=== PATIENT | female | born 1960 | race Caucasian/White ===

== ENCOUNTER → 2017-12-01 06:53 | Outpatient (CLI) | payer BC, SELFPAY ==
--- NOTE | 2017-12-01 06:58 | NM_ITS ---
SPECT MYOCARDIAL PERFUSION SCAN, REST AND STRESS: EXERCISE STRESS: [facility] REVIEW QGS EF AND WALL MOTION EVALUATION: QPS - PERFUSION EVALUATION: HISTORY: Chest pain, PALPITATIONS PROCEDURE: Rest imaging performed after administration of10.48 millicuries Tc MIBI. Dose administered at7:05 a.m., with imaging thereafter. Stress imaging was then performed following8 minutes 20 seconds of exercise stress. The patient achieved a heart [id number] with projected heart rate of140 . Resting BP149/82 with stress 154/74. At maximum exercise stress,32.6 millicuries Tc MIBI administered at8:45 a.m. with [id number] minutes thereafter. FINDINGS: Perfusion Evaluation: The single slice spect images as well as the [facility] bull's-eye data summary were reviewed. Wall Motion and Ejection Fraction Evaluation: Gated SPECT review and analysis used to evaluate these features. There is a 64 % left ventricular ejection fraction. There seems to be good wall motion Patient exercised 8 minutes 20 seconds on standard Olivier protocol with normal EKG response Stress images reveal mildly decreased activity in the anterior wall with rest images revealing moderately decreased activity in the anterior wall. Gated images calculated ejection fraction is 64% with normal wall motion. Correlation is advised. It is possible this represents breast attenuation however the possibility of anterior ischemia with a small degree of reverse redistribution does exist. IMPRESSION:
--- NOTE | 2017-12-01 07:43 | HMH.ITSHM ---
MULTIVITAMIN B12 CALCIUM ALLERGY MED NASONEX
== END ==
PROVIDERS: PCP Internal Medicine Adolescent Medicine; Visit Provider Internal Medicine Adolescent Medicine
DX: R00.2 Palpitations (principal); R07.9 Chest pain, unspecified
CPT/HCPCS: 78452; 93017; A9502

== ENCOUNTER → 2017-12-23 09:13 | Outpatient (CLI) | payer BC, SELFPAY ==
--- NOTE | 2017-12-23 09:15 | CA_ITS ---
PROCEDURE: 2-D M-mode and color Doppler study INDICATIONS FOR THE TEST: Chest pain COPD Heart Murmur Tobacco Smoking Palpitations+ Fatigue+ Syncope Edema Hypertension Diabetes Mellitus Rheumatic Fever SOB+KRUEGER Obesity Hyperlipidemia Family History HD Additional History NL CATH 2 WKS AGO PATIENT INFORMATION HEIGHT: 68 WEIGHT:195 GENDER: Female B/P:130/63 2-D/M-MODE INTERPRETATION: 2-D MEASUREMENTS OBSERVED VALUES IN CMS Right Ventricular Dimension (RVDd) 2.2 Interventricular Septum (Thickness)(IVsd) 1.1 Left Ventricular Internal Dimensions(LVIDd) 4.8 Left Ventricular Posterior Wall (Thickness)(LVPWd) 0.6 Aortic Root 3.5 Aortic Cusp Separation 2.2 Left Atrial Dimensions (LAD) 2.8 2D 1. Left atrium is normal size, left ventricle is normal size, there is no concentric left ventricular hypertrophy, visually estimated ejection fraction approximately 50% with no obvious regional wall motion abnormality. 2. The right atrium and right ventricle are normal size and contractility. 3. The aortic valve is minimally thickened and fibrosed. 4. The mitral and tricuspid valve are grossly normal. 5. The pulmonic valve is poorly visualized. 6. There is trivial pericardial effusion noted. DOPPLER INTERROGATION: Doppler interrogation of the aortic, mitral and tricuspid valvular presence of mild mitral and tricuspid regurgitation, tricuspid and jet velocity is insufficient for calculation of the right ventricular systolic pressure, diastolic parameters are inconclusive. CONCLUSION: 1. Normal left ventricular size, preserved left ventricular systolic function, visually estimated ejection fraction 50% with no obvious regional wall motion abnormality, diastolic parameters are inconclusive. 2. Mild mitral and tricuspid regurgitation 3. Trivial pericardial effusion noted.
== END ==
PROVIDERS: PCP Internal Medicine Adolescent Medicine; Visit Provider Internal Medicine
DX: R00.2 Palpitations (principal); E53.8 Deficiency of other specified B group vitamins; R06.09 Other forms of dyspnea; R53.83 Other fatigue
CPT/HCPCS: 93306

== ENCOUNTER → 2019-02-08 17:17 | Outpatient (CLI) | payer BC, SELFPAY ==
[2019-02-08 18:36] LABS: Basophils % 0.9 % (0.1-2.0); Eosinophils # 0.1 K/mm3 (0.0-0.4); Eosinophils % 1.2 % (0.1-12.0); Hematocrit 36.3 % (37.0-47.0); Hemoglobin 12.3 g/dL (12.2-16.2); Lymphocytes # 1.6 K/mm3 (0.7-4.5); Lymphocytes % 33.9 % (10-50); Mean Corpuscular Hemoglobin 29.2 pg (27.0-31.2); Mean Corpuscular Volume 85.9 fl (81-99); Mean Platelet Volume 6.7 fl (7.4-10.4); Monocytes # 0.2 K/mm3 (0.1-1.0); Monocytes % 4.2 % (1.7-9.3); Neutrophils # 2.8 K/mm3 (1.8-7.8); Neutrophils % 59.8 % (37.0-80.0); Platelet Count 251 K/mm3 (142-424); Red Blood Count 4.23 M/mm3 (4.20-5.40); Red Cell Distribution Width 12.4 % (11.5-17.5); White Blood Count 4.7 K/mm3 (4.8-10.8)
[2019-02-08 19:35] LABS: Anion Gap 15.2 mEq/L (5-15); Blood Urea Nitrogen 20 mg/dL (7-18); Carbon Dioxide 27 mmol/L (21.0-32.0); Chloride 104 mmol/L (98-107); Potassium 4.2 mmoL/L (3.5-5.1); Sodium 142 mmol/L (136-145)
[2019-02-08 19:36] LABS: Alanine Aminotransferase 23 U/L (12-78); Albumin/Globulin Ratio 1.1 (1.1-1.8); Alkaline Phosphatase 78 U/L (46-116); Aspartate Amino Transferase 9 U/L (15-37); Bilirubin,Total 0.6 mg/dL (0.2-1.0); Calcium 9.4 mg/dL (8.5-10.1); Estimated Glomerular Filt Rate 74 ml/min (>60); GFR (African American) 89 ML/MIN (>60); Globulin 3.7 gm/dl (1.3-3.2); Glucose 91 mg/dL (74-106); Total Protein,Serum 7.7 gm/dL (6.4-8.2)
[2019-02-12 06:23] LABS: Vitamin B12 791 pg/mL (232-1245)
== END ==
PROVIDERS: Visit Provider Internal Medicine Adolescent Medicine
DX: G57.92 Unspecified mononeuropathy of left lower limb (principal); E53.8 Deficiency of other specified B group vitamins
CPT/HCPCS: 36415; 80053; 82607; 85025

== ENCOUNTER → 2019-07-26 08:42 | Outpatient (CLI) | payer BC, SELFPAY ==
[2019-07-26 14:07] LABS: Basophils # 0.1 K/mm3 (0-0.2); Basophils % 1.2 % (0.1-2.0); Eosinophils # 0.1 K/mm3 (0.0-0.4); Eosinophils % 2.5 % (0.1-12.0); Hematocrit 37.1 % (37.0-47.0); Hemoglobin 12.2 g/dL (12.2-16.2); Lymphocytes # 1.2 K/mm3 (0.7-4.5); Lymphocytes % 27.7 % (10-50); Mean Corpuscular HGB Conc 32.9 g/dL (31.8-35.4); Mean Corpuscular Hemoglobin 29.9 pg (27.0-31.2); Mean Corpuscular Volume 90.9 fl (81-99); Mean Platelet Volume 8.4 fl (7.4-10.4); Monocytes # 0.2 K/mm3 (0.1-1.0); Neutrophils # 2.9 K/mm3 (1.8-7.8); Neutrophils % 63.7 % (37.0-80.0); Platelet Count 297 K/mm3 (142-424); Red Blood Count 4.09 M/mm3 (4.20-5.40); Red Cell Distribution Width 13.2 % (11.5-17.5); White Blood Count 4.5 K/mm3 (4.8-10.8)
[2019-07-26 16:33] LABS: Alanine Aminotransferase 17 U/L (12-78); Albumin Level 3.7 gm/dL (3.4-5.0); Albumin/Globulin Ratio 1.1 (1.1-1.8); Alkaline Phosphatase 69 U/L (46-116); Anion Gap 17.1 mEq/L (5-15); Aspartate Amino Transferase 14 U/L (15-37); Bilirubin,Total 0.8 mg/dL (0.2-1.0); Blood Urea Nitrogen 17 mg/dL (7-18); Calcium 8.5 mg/dL (8.5-10.1); Carbon Dioxide 22 mmol/L (21.0-32.0); Chloride 105 mmol/L (98-107); Chol/HDL Ratio 2.5 (1-3.5); Cholesterol 185 mg/dL (140-200); Creatinine,Serum 0.79 mg/dL (0.55-1.02); Estimated Glomerular Filt Rate 75 ml/min (>60); GFR (African American) 91 ML/MIN (>60); Globulin 3.3 gm/dl (1.3-3.2); Glucose 91 mg/dL (74-106); HDL Cholesterol 75 mg/dL (29-89); LDL Cholesterol 94 mg/dL (0-130); Potassium 4.1 mmoL/L (3.5-5.1); Sodium 140 mmol/L (136-145); Thyroid Stimulating Hormone 3.99 uIU/ml (0.358-3.740); Triglycerides 82 mg/dL (30-200); VLDL Cholesterol 16 mg/dL (0-40)
[2019-07-27 15:01] LABS: Vitamin B12 >2000 pg/mL (232-1245)
== END ==
PROVIDERS: PCP Internal Medicine Adolescent Medicine; Visit Provider Internal Medicine Adolescent Medicine
DX: G57.92 Unspecified mononeuropathy of left lower limb (principal); E53.8 Deficiency of other specified B group vitamins
CPT/HCPCS: 36415; 80053; 80061; 82607; 84443; 85025

== ENCOUNTER → 2020-05-17 16:22 | Outpatient (CLI) | payer BC, SELFPAY ==
[2020-05-19 13:34] LABS: Covid-19 Nasal PCR Sendout Lex Not Detected
== END ==
PROVIDERS: PCP Internal Medicine Adolescent Medicine; Visit Provider Internal Medicine Adolescent Medicine
DX: Z03.818 Encounter for observation for suspected exposure to other biological agents ruled out (principal)
CPT/HCPCS: U0004

== ENCOUNTER 2021-09-08 10:34 | Emergency (ER) | payer BC, SELFPAY ==
--- NOTE | 2021-09-08 11:28 | HMH.EDUTC ---
[facility] Disposition Clinical Impression: Sinusitis Qualifiers: Sinusitis location: unspecified location Chronicity: acute Recurrence: non-recurrent Qualified Code(s): J01.90 - Acute sinusitis, unspecified Disposition: Home, Self-Care Condition on Discharge: Good Instructions: DI for Sinusitis, Sinusitis, Preventing the Spread of Coronavirus Discharge Instructions Additional Instructions: Drink plenty of fluids. Take tylenol or ibuprofen for pain or fever. Take the medications as directed. Follow up with your regular doctor. GO TO THE ER FOR ANY WORSENING SYMPTOMS Quarantine until you know the results of your covid-19 test. If it is positive, the health department should call you and give you further instructions about your length of Quarantine and other things. Notify your school or workplace of your results and follow their instructions regarding return to work/school. Prescriptions: Benzonatate [Benzonatate 100mg cap] 100 mg PO TIDP PRN #30 cap PRN Reason: Cough Transmission Status: Pending to [facility] 493 methylPREDNISolone [Medrol] 4 mg PO DIRECTED 6 Days #21 packet Transmission Status: Pending to [facility] 493 guaiFENesin [Mucinex 600mg tablet] 1 - 2 tab PO BIDP PRN #30 tab PRN Reason: Congestion Transmission Status: Pending to [facility] 493 Azithromycin [Z-Ramez 250mg Tab*] 250 mg PO UD DOSE PK #6 tab Transmission Status: Pending to [facility] Referrals: Aureliano Johnson MD [Primary Care Provider] - Time of Disposition: 12:15 Medical Decision Making - Medical Records Medical records reviewed: No: I reviewed the patient's medical records. - Rajendra Inquiry Pt receiving controlled substance: No Vital Signs: 09/08/21 11:32 Temperature 98.7 F Temperature Source Oral Pulse Rate [Left] 85 Respiratory Rate 16 Blood Pressure [Right Arm] 166/95 H Blood Pressure Mean [Right Arm] 118 02 Sat by Pulse Oximetry 98 - Lab Data Lab results reviewed: Yes: I reviewed the patient's lab results. [facility] HPI - General Stated complaint: sore throat,cough,headache Time Seen by Provider: 09/08/21 11:28 - History of Present Illness Provider Complaint: She states that she has been having sinus congestion for the past 2 weeks. She seemed like she was getting better, but over the past 2 days she has got worse. She denies any fever or chills. She has been vaccinated against covid-19. She has not had a flu shot. - Related Data Home Medications Medication Instructions Recorded Confirmed ascorbate calcium (vitamin C) 500 500 mg PO DAILY tab 12/08/17 mg tablet loratadine 10 mg tablet 10 mg PO DAILY tab 12/08/17 mometasone 50 mcg/actuation nasal 2 spray INTRANASAL DAILY g 12/08/17 spray multivitamin 1 tab PO QAM 12/08/17 vitamin B complex 1 tab PO DAILY tab 12/08/17 vitamin U12-deecbkq B1 1,000 ml IM .twice a week 12/08/17 mcg-100 mg/mL injection solution Previous Rx's Medication Instructions Recorded Azithromycin [Z-Ramez 250mg Tab*] 250 mg PO UD DOSE PK #6 tab 09/08/21 Benzonatate [Benzonatate 100mg 100 mg PO TIDP PRN #30 cap 09/08/21 cap] guaiFENesin [Mucinex 600mg tablet] 1 - 2 tab PO BIDP PRN #30 tab 09/08/21 methylPREDNISolone [Medrol] 4 mg PO DIRECTED 6 Days #21 09/08/21 packet Allergies Allergy/AdvReac Type Severity Reaction Status Date / Time Penicillins [PENICILLINS] Allergy Unknown Unverified 08/26/17 14:02 [facility] History - Hepatitis A Screen Attestation statement:: This patient has been screened for Hepatitis A risk factors. I have reviewed the patient's past medical history: Yes Medical History: Reports:: Palpitations Other Surgeries: Yes: Colonoscopy, Diagnostic Lap, Other Amputation: No Fractures: No - Social History Smoking Status: Never smoker Alcohol Intake: never Alcohol Intake Frequency:: holidays/special occasions only Substance Use Type: denies use Occupational Status: employed
[2021-09-08 11:32] VITALS: BP 166/95; PULSE 85; RESP 16; TEMP 37.1; O2SAT 98; BMI 29.5
[2021-09-08 12:29] VITALS: BP 166/95; PULSE 85; RESP 16; TEMP 37.1
--- NOTE | 2021-09-09 11:32 | PC.NURSE ---
informed patient that she is positive
== END 2021-09-08 12:29 | disposition home or self-care (01) ==
PROVIDERS: Emergency Provider Nurse Practitioner Family; PCP Internal Medicine Adolescent Medicine
DX: U07.1 COVID-19 (principal); J01.90 Acute sinusitis, unspecified
CPT/HCPCS: 99202; C9803; G0463; U0003; U0005

== ENCOUNTER 2023-03-27 08:53 | Day surgery (SDC) | payer BC, SELFPAY ==
[2023-03-21 09:03] VITALS: BMI 29.5
[2023-03-27 09:32] VITALS: BP 155/89; PULSE 84; RESP 16; TEMP 36.7; O2SAT 98
--- NOTE | 2023-03-27 09:59 | P.PNANES_ITS ---
[facility] Disclaimer: The information contained in this section may have been updated after the patient was seen, as this information can be updated by other users. 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 caffeine: Yes special nancie needs: No do you feel safe at home: Yes victim of physical abuse: No victim of emotional abuse: No victim of sexual abuse: No would you like helpful sources: No [facility] Anesthesia Checklist Patient Identification Patient Identification: Arm Band and Verbal (Name & ) Structural Data Admitted From: Home Planned Operative Procedure/s: Colonoscopy Consent for Planned Operative Procedure(s) Verified: Yes NPO Status Verified Time NPO: 00:00 Airway Assessment C-Spine Mobility Assessed: Yes TMJ Mobility Assessed: Yes Dentition: Good Dentition Neurological Assessment Level of Consciousness: Awake Hx Seizures: No Numbness or tingling in extremities: No Anesthesia Plan Anesthesia Risk discussed: Yes Anesthesia Plan: Verified ASA Class: II Anesthesia Type: MAC
[2023-03-27 10:06] VITALS: O2SAT 100
--- NOTE | 2023-03-27 10:21 | HMH.SCOPE ---
Procedure: Date: 03/27/23 Patient Date of :: 1960 Procedure Performed:: Screening colonoscopy Indications:: Screening for colorectal cancer Performing Provider:: Franco Neal MD Referring Provider:: Aureliano Johsnon MD Sedation:: Propofol Procedure:: After placing the patient in the left lateral decubitus position, the colonoscopy was gently inserted into the rectum and under direct visualization advanced to the cecum which was identified by transillumination in the right lower quadrant, identification of the ileocecal valve, appendiceal orifice, and cecal strap. Color, texture, mucosa, and anatomy of the colon were carefully examined with the scope. Findings:: Anal canal: normal Rectum: normal Sigmoid colon: normal without polyps or inflammatory changes Descending colon: normal without polyps or inflammatory changes Splenic flexure: normal Transverse colon: normal without polyps or inflammatory changes Hepatic flexure: normal Ascending colon: normal without polyps or inflammatory changes Cecum: normal Terminal ileum: not visualized Impression: Normal colonoscopy Recommendations:: Follow up examination in about TEN years or so, sooner if clinically indicated. Complications:: None Estimated blood obtained (mL): 0 Colonoscopy Component Colonoscopy Component Was a colonoscopy performed during today's procedure?: Yes Recommended follow up colonoscopy of at least 10 years?: Yes
[2023-03-27 10:25] VITALS: BP 92/59; PULSE 66; RESP 16; TEMP 36.1; O2SAT 96
[2023-03-27 10:35] VITALS: BP 96/56; PULSE 75; RESP 16; TEMP 36.1; O2SAT 97
[2023-03-27 10:45] VITALS: BP 109/67; PULSE 66; RESP 18; TEMP 36.1; O2SAT 97
[2023-03-27 10:55] VITALS: BP 112/72; PULSE 64; RESP 18; TEMP 36.1; O2SAT 98
== END 2023-03-27 10:55 | disposition home or self-care (01) ==
PROVIDERS: PCP Internal Medicine Adolescent Medicine; Visit Provider Internal Medicine Gastroenterology
PROC: 0DJD8ZZ Inspection of Lower Intestinal Tract, Via Natural or Artificial Opening Endoscopic (ICD-10-PCS; CPT 45378; principal; 2023-03-27 10:00)
DX: Z12.11 Encounter for screening for malignant neoplasm of colon (principal)
CPT/HCPCS: 45378

== ENCOUNTER 2023-05-26 13:48 | Emergency (ER) | payer BC, SELFPAY ==
--- NOTE | 2023-05-26 13:51 | XR_ITS ---
FINAL REPORT CLINICAL HISTORY: fall, RT HAND PAIN FINDINGS: RIGHT HAND Three views demonstrate no acute fracture or dislocation. The visualized joint spaces are normally aligned. There is mild soft tissue swelling involving the dorsum of the hand. IMPRESSION: No acute bony abnormality. Reviewed, Interpreted and Dictated by Familia Madden MD Transcribed by Susana Sanchez Authenticated and [facility]
--- NOTE | 2023-05-26 13:51 | XR_ITS ---
FINAL REPORT CLINICAL HISTORY: fall, RT WRIST PAIN COMPARISON: None FINDINGS: RIGHT WRIST Three views demonstrate no acute fracture or dislocation. The visualized joint spaces are normally aligned. The soft tissues are unremarkable. IMPRESSION: No acute bony abnormality. Reviewed, Interpreted and Dictated by Familia Madden MD Transcribed by Susana Sanchez Authenticated and [facility]
[2023-05-26 14:00] VITALS: BP 129/78; PULSE 85; RESP 18; TEMP 36.8; O2SAT 96; BMI 29.5
--- NOTE | 2023-05-26 14:03 | EXP.UTC ---
Discharge Plan Disposition Patient Disposition: Home, Self-Care Condition: Good Prescriptions Prescriptions: New ibuprofen [ibuprofen] 600 mg tablet 600 mg PO Q6HP PRN (Reason: Mild Pain) Qty: 30 0RF No Action multivitamin tablet 1 tab PO QAM ascorbate calcium (vitamin C) 500 mg tablet 500 mg PO DAILY loratadine [Claritin] 10 mg tablet 10 mg PO DAILY vitamin X51-uxsocaw B1 1,000-100 mg/mL solution 1,000 ml IM .twice a week vitamin B complex [B Complex-Vitamin B12] tablet 1 tab PO DAILY medroxyprogesterone [Provera] 5 mg Tablet See Rx Instructions .ROUTE .COMPLEX Rx Instructions: take 5 days a week levothyroxine 25 mcg tablet 25 mcg PO DAILY estradiol 0.5 mg tablet 0.5 mg PO DAILY Patient Comments: TAKE 1 TABLET BY MOUTH ONCE DAILY Rx Instructions: 5 days a week bupropion HCl 150 mg tablet extended release 24 hr 150 mg PO DAILY Referrals Follow up/Referrals: Dejon Marie DO [Staff Physician] - See instructions Aureliano Johnson MD [Primary Care Provider] - See instructions Activity Restrictions/Add. Instructions Additional Instructions/Restrictions: Rest the extremity, Wear the danay wrap for compression, Elevate the extremity as tolerated while you are resting. Take ibuprofen for pain. I sent in a prescription to your pharmacy. Follow up with Dr. Marie (orthopedics) if you continue to have symptoms. I put in a referral but you need to call his office and schedule an appointment. Follow up with your regular doctor. GO TO THE ER FOR ANY WORSENING SYMPTOMS Clinical Impressions Clinical Impression: Sprain of hand, right Instructions Patient Instructions: DI for Hand Injury Discharge ED Provider: Kevin Candelario [facility] General Stated complaint: AO9/15@home, pain in Rt hand Time Seen by Provider: 05/26/23 14:03 History of Present Illness Provider Complaint: She states that she fell 3 days ago and came down on her right hand. Since then she has had pain and soreness of the area around the base of her middle and ring finger. She denies any other injury. She thought her hand was getting better but when she went back to work and started typing today it started hurting her worse, so she came in to get it checked. Related Data Home Medications Medication Instructions Recorded Confirmed ascorbate calcium (vitamin C) 500 500 mg PO DAILY Supplement 12/08/17 03/12/23 mg tablet loratadine 10 mg tablet (Claritin) 10 mg PO DAILY allergies 12/08/17 05/26/23 multivitamin 1 tab PO QAM Supplement 12/08/17 05/26/23 vitamin B complex (B 1 tab PO DAILY Supplement 12/08/17 03/12/23 Complex-Vitamin B12 tablet) vitamin K30-kjxviak B1 1,000 1,000 ml IM .twice a week 12/08/17 03/12/23 mcg-100 mg/mL injection solution Supplement bupropion HCl 150 mg 24 hr tablet, 150 mg PO DAILY Anxiety 03/12/23 05/26/23 extended release estradiol 0.5 mg tablet 0.5 mg PO DAILY hormone 03/12/23 05/26/23 levothyroxine 25 mcg tablet 25 mcg PO DAILY thyroid 03/12/23 05/26/23 medroxyprogesterone 5 mg tablet See Rx Instructions .Route 03/12/23 05/26/23 (Provera) .COMPLEX hormone Previous Rx's Medication Instructions Recorded ibuprofen 600 mg tablet 600 mg PO Q6HP PRN Mild Pain #30 05/26/23 tabs Allergies Allergy/AdvReac Type Severity Reaction Status Date / Time Penicillins [PENICILLINS] Allergy Unknown Verified 05/26/23 14:13 [facility] Disclaimer: The information contained in this section may have been updated after the patient was seen, as this information can be updated by other users. Medical History Hx of anxiety disorder Hypothyroid Surgical History History of back surgery Family History Other Family history of atrial fibrillation Social H
[2023-05-26 15:28] VITALS: BP 129/78; PULSE 85; RESP 18; TEMP 36.8; O2SAT 96
== END 2023-05-26 15:28 | disposition home or self-care (01) ==
PROVIDERS: Emergency Provider Nurse Practitioner Family; PCP Internal Medicine Adolescent Medicine
DX: S63.91XA Sprain of unspecified part of right wrist and hand, initial encounter (principal); E03.9 Hypothyroidism, unspecified; W19.XXXA Unspecified fall, initial encounter
CPT/HCPCS: 73110; 73130; 99212; 99214; G0463

== ENCOUNTER 2023-10-30 09:27 | Outpatient (CLI) | payer BC, SELFPAY ==
--- NOTE | 2023-10-30 09:30 | XR_ITS ---
FINAL REPORT CLINICAL HISTORY: right wrist pain COMPARISON: 05/26/2023 FINDINGS: RIGHT WRIST Three views demonstrate no acute fracture or dislocation. There is a well-corticated density adjacent to the base of the third metacarpal which may be due to old trauma as seen on the lateral view only. The visualized joint spaces are normally aligned. The soft tissues are unremarkable. IMPRESSION: No acute bony abnormality. Reviewed, Interpreted and Dictated by Familia Madden MD Transcribed by Lauren Amado Authenticated and [facility]
--- NOTE | 2023-10-30 09:39 | XR_ITS ---
FINAL REPORT CLINICAL HISTORY: right hand pain COMPARISON: 05/26/2023 FINDINGS: RIGHT HAND Three views demonstrate no acute fracture or dislocation. The visualized joint spaces are normally aligned. The soft tissues are unremarkable. IMPRESSION: No acute bony abnormality. Reviewed, Interpreted and Dictated by Familia Madden MD Transcribed by Lauren Amado Authenticated and [facility]
== END 2023-10-30 23:59 ==
LOC: RAD 09:27
PROVIDERS: PCP Internal Medicine Adolescent Medicine; Visit Provider Orthopaedic Surgery
DX: S63.91XA Sprain of unspecified part of right wrist and hand, initial encounter (principal); S62.91XA Unspecified fracture of right hand, initial encounter for closed fracture
CPT/HCPCS: 73110; 73130

== ENCOUNTER 2023-12-23 08:00 | Outpatient (RCR) | payer BC, SELFPAY ==
--- NOTE | 2023-11-05 10:04 | HMH.PTOPEV ---
PT Outpatient Evaluation Rehab PT Outpatient Evaluation Start: 11/05/23 08:02 Freq: Status: Active Protocol: Document 11/05/23 08:02 JONAH (Rec: 11/05/23 10:04 [id number]) E-signed By Brandt Butts, PT Outpatient Therapy Subjective History Subjective History Pt. is a 63 year old female who presents to [facility] in [place] for the initial evaluation this date(11/05/23) w/ c/o chronic and constant RUE hand and 3rd/4th digit P!, edema, and stiffness of traumatic onset secondary to a fall in May of last year. Pt. reports symptoms have progressively been getting worse in the last 3 weeks. Recent diagnostic imaging(radiograph) negative per pt. report. Pt. reports initially having radiographs taken post fall of last year that also came back negative. Pt. reports symptoms improved w/ rest and time, however, states symptoms have returned and been progressively worsening in the last 3 weeks. Pt. 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 Pt. denies having any injections for current complaint, states having some symptom relief w/ OTC Ibuprofen. Pt. denies having any restrictions at this time, does not have a return date to the MD at this time. Pt. reports having difficulties w/ picking/lifting heavier objects, states she will drop items. Pt. denies numbness/ tingling into the hand. Current medications include Ibuprofen PRN, Synthroid, Wellbutrin, Calcium supplement , B-12, and multi-vitamin. PMH includes Hypothyroidism and S /P L-spine discectomy. New diagnosis of cancer in past 12 No months? 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 Strength,Decreased Coordination Symptom Type Ache,Throb,Dull,Burning,Other Symptoms Relieved By Rest/Positioning,Ice,OTC Meds Symptoms Aggravated By Bending/Stooping,Physical Activity,Lifting Prior Functional Limitations None Current Functional Limitations Lifting,Housework,Desk Work/ Reading,Recreation Activity Symptom Description Constant and Continuous, Activity Dependent Level of pain today (0-10) 4 Pain scale - at its best (0-10) 3 Pain scale - at its worst (0-10) 8 Wrist/Hand Eval Palpation Tenderness/Visual Exam Wrist/Hand Palpation Findings Tenderness erythema hand/finger exam standard right Wrist/Hand Palpation Overall Comment grade 3 +TTP to extensor tendons 3rd/4th digits and metacarpal bones Flexibility Deficits Wrist Extensors Muscle Length (R) Severe Tightness Wrist Flexors Muscle Length (R) Moderate Tightness Hand Intrinsics Muscle Length (R) Severe Tightness Wrist Range of Motion Right Wrist Limitations of Range of Motion Soft Tissue Tightness,Muscle Weakness,Pain Wrist Extension Active Range of Motion ( 46 degrees) Wrist Extension Passive Range of Motion 54 (degrees) Wrist Flexion Active Range of Motion ( 75 degrees) Wrist Flexion Passive Range of Motion ( 80 degrees) Wrist Radial Deviation Active Range of 22 Motion (degrees) Wrist Radial Deviation Passive Range of 25 Motion (degrees) Wrist Ulnar Deviation Active Range of 35 Motion (degrees) Wrist Ulnar Deviation Passive Range of 39 Motion (degrees) Finger Range of Motion Right Ring Finger Finger ROM Limitations Soft Tissue Tightness,Muscle Weakness,Pain Finger Metacarpophalangeal Flexion 65 Active Range of Motion (degrees) Finger Metacarpophalangeal Flexion 71 Passive Range of Motion (degrees) Finger Metacarpophalangeal Extension WFL Active Range of Motion (degrees) Finger Proximal Interphalangeal Flexion 80 Active Range (degrees) Finger Proximal Interphalangeal Flexion 82 Passive Range (degrees) Finger Proximal Interphalangeal WFL Extension Active Range (degrees) Finger Distal Interphalangeal Flexion 60 Active Range of Motion (degrees) Finger Distal Interphalangeal Flexion 64 Passive Range Motion (degrees) Finger Distal Interphalangeal Extension WFL Active Range Motion (degrees) Right Middle Finger Finger ROM Limitations Soft Tissue Tightness,Muscle Weakness,Pain Finger Metacarpophalangeal Flexion 85 Active Range of Motion (degrees) Finger Metacarpophalangeal Flexion 89 Passive Range of Motion (degrees) Finger Metacarpophalangeal Extension WFL Active Range of Motion (degrees) Finger Proximal Interphalangeal Flexion 70 Active Range (degrees) Finger Proximal Interphalangeal Flexion 74 Passive Range (degrees) Finger Proximal Interphalangeal WFL Extension Active Range (degrees) Finger Distal Interphalangeal Flexion 65 Active Range of Motion (degrees) Finger Distal Interphalangeal Flexion 69 Passive Range Motion (degrees) Finger Distal Interphalangeal Extension WFL Active Range Motion (degrees) Wrist Manual Muscle Testing Right Wrist Extension Strength Grade 3+ Fair+ Wrist Flexion Strength Grade 4 Good Wrist Radial Deviation Strength Grade 3+ Fair+ Wrist Ulnar Deviation Strength Grade 3+ Fair+ Hand/Finger Manual Muscle testing Right Ring Finger Finger Extension Strength Grade 3+ Fair+ Finger Abduction Strength Grade 3+ Fair+ Finger Adduction Strength Grade 3+ Fair+ Lumbricals Strength Grade - FI 3+ Fair+ Right Middle Finger Finger Extension Strength Grade 3+ Fair+ Finger Abduction Strength Grade 3+ Fair+ Finger Adduction Strength Grade 3+ Fair+ Lumbricals Strength Grade - FI 3+ Fair+ Senior Sales Administrator/Pinch Strength Right Senior Sales Administrator Strength Measurement (lbs) 20 Special Tests Wrist [place] Test Negative Right Wrist [place] Test Negative Right 3rd Digit Compression Test Negative Right 4th Digit Compression Test Negative Right Hand/Finger Accessory Movements Right Ring Finger Metacarpal Phalangeal Radial [place] Severely Decreased Movement (finger JAM) Metacarpal Phalangeal Ulnar [place] Severely Decreased Movement (finger JAM) Metacarpal Phalangeal Dorsal [place] ( Severely Decreased finger JAM) Metacarpal Phalangeal Volar [place] ( Severely Decreased finger JAM) Finger Accessory Movements that Elicit MCP Dorsal [place],MCP Volar Symptoms [place],MCP Radial [place],MCP Ulnar [place],PIP Dorsal [place], PIP Volar [place],PIP Radial [place],PIP Ulnar [place],DIP Dorsal [place],DIP Volar [place], DIP Radial [place],DIP Ulnar [place] Proximal Interphalangeal Radial [place] Severely Decreased Movement (finger JAM) Proximal Interphalangeal Ulnar [place] Severely Decreased Movement (finger JAM) Proximal Interphalangeal Dorsal [place] Severely Decreased Movement (finger JAM0 Proximal Interphalangeal Volar [place] Severely Decreased Movement (finger JAM) Distal Interphalangeal Radial [place] Severely Decreased Movement (finger JAM) Distal Interphalangeal Ulnar [place] Severely Decreased Movement (finger JAM) Distal Interphalangeal Dorsal [place] Severely Decreased Movement (finger JAM) Distal Interphalangeal Volar [place] Severely Decreased Movement (finger JAM) Right Middle Finger Metacarpal Phalangeal Radial [place] Severely Decreased Movement (finger JAM) Metacarpal Phalangeal Ulnar [place] Severely Decreased Movement (finger JAM) Metacarpal Phalangeal Dorsal [place] ( Severely Decreased finger JAM) Metacarpal Phalangeal Volar [place] ( Severely Decreased finger JAM) Finger Accessory Movements that Elicit MCP Dorsal [place],MCP Volar Symptoms [place],MCP Radial [place],MCP Ulnar [place],PIP Dorsal [place], PIP Volar [place],PIP Radial [place],PIP Ulnar [place],DIP Dorsal [place],DIP Volar [place], DIP Radial [place],DIP Ulnar [place] Proximal Interphalangeal Radial [place] Severely Decreased Movement (finger JAM) Proximal Interphalangeal Ulnar [place] Severely Decreased Movement (finger JAM) Proximal Interphalangeal Dorsal [place] Severely Decreased Movement (finger JAM0 Proximal Interphalangeal Volar [place] Severely Decreased Movement (finger JAM) Distal Interphalangeal Radial [place] Severely Decreased Movement (finger JAM) Distal Interphalangeal Ulnar [place] Severely Decreased Movement (finger JAM) Distal Interphalangeal Dorsal [place] Severely Decreased Movement (finger JAM) Distal Interphalangeal Volar [place] Severely Decreased Movement (finger JAM) Wrist/Hand Muscle Tone Finger Extensors Muscle Tone Description Severe Hypertonicity Wrist Extensors Muscle Tone Description Severe Hypertonicity Outpatient Therapy Assessment Impairments Problems/Impairmments Palpation Tenderness,Impaired Range of Motion,Impaired Strength,Impaired Lifting, Impaired Household Care, Impaired Recreational Activities,Impaired Work Activities,Impaired Desk/ Computer Activities,Increased Edema,Subjective C/O Pain, Impaired Self Care/Self Management Prognosis Rehab Potential Good Comment w/ HEP compliancy Clinical Impression Consistent with Diagnosis Yes Consistent with RUE hand P! Short Term Goals Number of Weeks 2 Decreased Palpation Tenderness Yes: grade 1-2 +TTP to TTP assessment above Decrease Subjective C/O Pain Yes: worse:01/15 Patient to be Ind w/ HEP Yes Platform Supervisor Goals Number of Weeks 4-6 Decreased Palpation Tenderness Yes: grade 1 +TTP to TTP assessment above Increase Range of Motion Yes: RUE wrist/3rd/4th digit A /PROM WFL grossly Increase Strength Yes: RUE wrist/3rd/4th digit MMT scores 4+ to 5/5 grossly Restore Ability to Lift Objects to Waist Yes Level Restore Ability to Lift Objects to Yes Shoulder Level Improve Ability For Household Care Yes Improve Tolerance to Desk/Computer Yes Activities Improve Quick Dash Score Yes Decrease Edema Yes Decrease Subjective C/O Pain Yes: worse:-10/18 Improve Self Care/Self Management Yes Patient to be Ind w/ Advanced HEP Yes Outpatient Therapy Plan of Care Treatment Plan May Include Therapeutic Exercise Including Home Yes Exercise Program Manual Therapy Techniques Yes Neuromuscular Re-education Yes Therapeutic Activities to Return to Yes Previous Functional/Work Level ADL/Self Care Education Yes Dry Needling Yes Thermal Modalities Yes Electrical Stimulation Yes Ultrasound/Phonophoresis Yes Iontophoresis Yes Parrafin Yes Vasopneumatic Compression Pump Yes Massage Yes Eval/Re-Eval Yes Frequency Times per week 2 Duration Number of Weeks 4-6 Addendums This patient is a candidate for social No or vocational rehab? Patient/Guardian verbally acknowledges Yes understanding of treatment program and consents to further treatment? Patient/Guardian verbally acknowledges Yes understanding of diagnosis, prognosis and goals for treatment? Eval Complexity PT Charges 49591 - Low Complexity Shoulder/Elbow Eval Shoulder Objective Measurements Elbow Objective Measurements PHYSICIAN CERTIFICATION: I certify the specified therapy services for Albertina Jack are required, authorized, and reviewed every 30 days.
== END 2024-01-06 08:34 | disposition home or self-care (01) ==
LOC: PT 08:00
PROVIDERS: Visit Provider Orthopaedic Surgery
DX: M79.641 Pain in right hand (principal)
CPT/HCPCS: 97010; 97014; 97035; 97110; 97163; 97164; 97530; G0283

== ENCOUNTER 2024-09-30 15:43 | Outpatient (CLI) | payer BC, SELFPAY ==
--- NOTE | 2024-09-30 15:52 | MM_ITS ---
PROCEDURE INFORMATION: Exam: MG Bilateral Screening 3D Mammography Exam date and time: 09/30/2024 3:46 PM Age: 64 years old Clinical indication: Screening examination TECHNIQUE: Imaging protocol: Bilateral Screening tomosynthesis and 2D mammography including computer-aided detection (CAD) when performed. COMPARISON: No relevant prior studies available. FINDINGS: MAMMOGRAPHY: Breast composition: There are scattered areas of fibroglandular density. Mass: None. Architectural distortion: None. Calcifications: No suspicious calcifications. Asymmetric density: None. Skin thickening: None. Axillary adenopathy: None. IMPRESSION: No mammographic evidence of malignancy. Annual screening is recommended unless otherwise clinically indicated. ASSESSMENT: BI-RADS Category 1: Negative.
== END 2024-09-30 23:59 | disposition home or self-care (01) ==
LOC: RAD 15:45
PROVIDERS: PCP Internal Medicine Adolescent Medicine; Visit Provider Obstetrics & Gynecology
DX: Z12.31 Encounter for screening mammogram for malignant neoplasm of breast (principal)
CPT/HCPCS: 77063; 77067

== ENCOUNTER 2025-02-15 12:16 | Emergency (ER) | payer BC, SELFPAY ==
[2025-02-15 12:25] VITALS: BP 161/87; PULSE 81; RESP 15; TEMP 36.9; O2SAT 96; BMI 26.6
--- NOTE | 2025-02-15 12:25 | PC.NURSE ---
COURTNEY AUGUST AT BEDSIDE
--- OUTSIDE RECORDS SUMMARY | 2025-02-15 12:25 | XMS_ITS | Data Portability ---
Author Organization LOY Oniel donis, ABBEYS MCALLEN CLOSED Address [address] [place] [address] Care Team Providers Care Pipe Finishing Supervisor Name Role Phone AURELIANO DAVIDSON Primary Care Provider Assessment Encounter Date Assessment Date Assessment LastModified by Organization Details LastModified Time 01/20/2025 01/20/2025 X-rays were reviewed, independently assessed, and discussed with the patient in the office today. Imaging reveals mild arthritic changes in the wrist. Discussed that the palmar nodules consistent with a Dupuytren's nodule. I had a long discussion with patient in clinic today regarding diagnosis and treatment options. I explained my approach to Dupuytren's disease starting first with clinical observation as long as the patient has a normal tabletop test with MCP flexion contractures less then 30 and no IP joint flexion contractures. If the disease advances to to this point or becomes more symptomatic, then several treatment options are available. Specific options include needle aponeurotomy, collagenase injection, and open fasciectomy. We discussed the risk and benefits of each potential treatment option. At this point the patient is asymptomatic with no associated contractures and has elected to proceed with continued monitoring at this time. The dorsal area of swelling is most consistent with fourth dorsal compartment tenosynovitis. Treatment options discussed with recommendation for conservative management. I proceeded with aspiration of the fluid-filled space which was consistent with tenosynovial fluid followed by corticosteroid injection to the fourth dorsal compartment to treat the source of inflammation. We discussed resting in a wrist splint through the weekend and then gradually resuming activity as tolerated. Ultimately should symptoms persist or recur we would discuss moving forward with an MRI. We will obtain a screening inflammatory/auto immune arthritis lab panel today given the spontaneous nature of her tenosynovitis and family history of rheumatoid arthritis. Follow-up again in 6 weeks for repeat assessment, but can call to cancel if doing well at that time. bdevers Not available 01/21/2025 12:55:30 Plan of Treatment Reminders Order Date Submit Date Provider Last Modified By Organization Details Last Modified Time Details Appointments RECHECK 2024 10:40A M JIM LUI MD Not available Not available Not available Lab None recorded . Referral None recorded . Procedures None recorded . Surgeries None recorded . Imaging None recorded . Medication Orders None recorded . Patient TargetsNo targets recorded. Patient InstructionsNo instructions recorded. Reason for Referral None Reported. Results Created Date Observation Date Name Description Value Unit Range Abnormal Flag Note LastModifiedBy Organization Detail LastModifiedTime 01/21/2001/20/2025 COMPL ETE BLOOD COUNT white blood cells 4.0 10*3/ uL 3.8-10 .8 normal Not Available [facility] [address] [place] [address], [phone], 01/20/2025 12:10:49 01/21/20 25 01/20/2025 COMPL ETE BLOOD COUNT red blood cells 4.40 10*6/ uL 3.80-5 .20 normal Not Available [facility] [address] [place] [address], [phone], 01/20/2025 12:10:49 01/21/20 25 01/20/2025 COMPL ETE BLOOD COUNT hemoglobin 12.5 g/dL 12.0-1 6.0 normal Not Available [facility] [address] [place] [address], [phone], 01/20/2025 12:10:49 01/21/20 25 01/20/2025 COMPL ETE BLOOD COUNT hematocrit 38.2 % 35.0-4 7.0 normal Not Available [facility] [address] [place] [address], [address], 01/20/2025 12:10:49 01/21/20 25 01/20/2025 COMPL ETE BLOOD COUNT MCV 87 fL 80-100 normal Not Available [facility] [address] [place] [address], [phone], 01/20/2025 12:10:49 01/21/20 25 01/20/2025 COMPL ETE BLOOD COUNT MCH 28 pg 26-35 normal Not Available [facility] [address] [place] [address], [address], 01/20/2025 12:10:49 01/21/20 25 01/20/2025 COMPL ETE BLOOD COUNT MCHC 33 g/dL 32-36 normal Not Available [facility] [address] [place] [address], [address], 01/20/2025 12:10:49 01/21/20 25 01/20/2025 COMPL ETE BLOOD COUNT RDW 13.4 % 11.0-1 5.0 normal Not Available [facility] [address] [place] [address], [phone], 01/20/2025 12:10:49 01/21/20 25 01/20/2025 COMPL ETE BLOOD COUNT MPV 6.9 fL 6.2-10 .5 normal Not Available [facility] [address] [place] [address], [phone], 01/20/2025 12:10:49 01/21/20 25 01/20/2025 COMPL ETE BLOOD COUNT platelet count 244 10*3/ uL 150-40 0 normal Not Available [facility] [address] [place] [address], [phone], 01/20/2025 12:10:49 01/21/20 25 01/20/2025 COMPL ETE BLOOD COUNT neutrophil,a bsolute 2.1 10*3/ uL 1.6-8. 4 normal Not Available [facility] [address] [place] [address], [phone], 01/20/2025 12:10:49 01/21/20 25 01/20/2025 COMPL ETE BLOOD COUNT lymphocyte,a bsolute 1.3 10*3/ uL 0.4-5. 1 normal Not Available [facility] [address] [place] [address], [phone], 01/20/2025 12:10:49 01/21/20 25 01/20/2025 COMPL ETE BLOOD COUNT monocyte,abs olute 0.4 10*3/ uL 0.0-1. 2 normal Not Available [facility] [address] [place] [address], [address], 01/20/2025 12:10:49 01/21/20 25 01/20/2025 COMPL ETE BLOOD COUNT eosinophil,a bsolute 0.1 10*3/ uL 0.0-0. 8 normal Not Available [facility] [address] [place] [address], [phone], 01/20/2025 12:10:49 01/21/20 25 01/20/2025 COMPL ETE BLOOD COUNT basophil,abs olute 0.1 10*3/ uL 0.0-0. 3 normal Not Available [facility] [address] [place] [address], [phone], 01/20/2025 12:10:49 01/21/20 25 01/20/2025 COMPL ETE BLOOD COUNT % neutrophils 53.4 % 42.0-7 8.0 normal Not Available [facility] [address] [place] [address], [phone], 01/20/2025 12:10:49 01/21/20 25 01/20/2025 COMPL ETE BLOOD COUNT % lymphocytes 32.7 % 11.0-4 7.0 normal Not Available [facility] [address] [place] [address], [address], 01/20/2025 12:10:49 01/21/20 25 01/20/2025 COMPL ETE BLOOD COUNT % monocytes 9.9 % 0.0-11 .0 normal Not Available [facility] [address] [place] [address], [address], 01/20/2025 12:10:49 01/21/20 25 01/20/2025 COMPL ETE BLOOD COUNT % eosinophils 2.1 % 0.0-7. 0 normal Not Available [facility] [address] [place] [address], [address], 01/20/2025 12:10:49 01/21/20 25 01/20/2025 COMPL ETE BLOOD COUNT % basophils 1.9 % 0.0-3. 0 normal Not Available [facility] [address] [place] [address], [address], 01/20/2025 12:10:49 01/21/20 25 01/20/2025 COMPL ETE BLOOD COUNT nucleated red cells 0.0 % 0.0-0. 9 normal Not Available [facility] [address] [place] [address], [phone], 01/20/2025 12:10:49 01/21/20 25 01/20/2025 COMPL ETE BLOOD COUNT nucleated RBCs, absolute 0.00 10*3/ uL not estab. normal Not Available [facility] [address] [place] [address], [phone], 01/20/2025 12:10:49 01/21/2001/20/2025 URIC ACID uric acid 6.9 mg/dL 2.4-5. 7 high Refer ence range s are based on [facility] norms and do not neces sterling espitia late with treat ment targe ts. In patie nts with an estab lishe d diagn osis of gout under going Urate Lower ing Thera py (ULT) , the 2011 [facility] at[facility] Rohan titus s for Manag ement of Gout recom mend a targe t uric acid level of < 6 mg/dL in all patie nts, or lower in certa in circu mstan josefa. Arthr itis Care and Resea [facility] Vol 64 No 10, 2011 [facility] atolo [facility] ----- ----- ----- ----- ----- ----- ----- ----- ----- ----- ----- ---- Not Available [facility] [address] [place] [address], [phone], 01/20/2025 12:46:00 01/21/20 25 01/20/2025 RF SCREE N, QUANT . rf screen, quant. <10.0 [IU]/ mL 0.0-13 .9 normal Not Available [facility] [address] [place] [address], [phone], 01/20/2025 12:46:01 01/21/2001/20/2025 C REACT ELIECER PROTE IN C reactive protein 0.54 mg/dL 0.00-0 .49 high Not Available [facility] [address] [place] [address], [phone], 01/20/2025 12:46:03 01/21/2001/20/2025 ESR, AUTOM ATED ESR, automated 15 mm 0-29 normal Not Available [facility] [address] [place] [address], [address], 01/20/2025 14:32:20 01/21/2001/21/2025 ANTI- CCP anti-ccp <16 units normal Refer ence Range Negat eliecer: <20 Weak Posit eliecer: 20-39 Moder ate Posit eliecer: 40-59 Stron g Posit eliecer: >[address] Not [address] [facility] [address] [place] [address], [address], 01/21/2025 18:40:32 01/21/20 25 01/22/2025 SAMIA W/ REFLE X SAMIA screen NEGATI VE negati ve normal SAMIA IFA is a first line scree n for detec ting the prese nce of up to appro ximat ander 150 autoa ntibo dies in vario us autoi mmune disea ses. A negat eliecer SAMIA IFA resul t sugge sts an SAMIA-a ssoci ated autoi mmune disea se is not prese nt at this time, but is not defin itive . If there is high clini wes suspi cion for Sjogr en's syndr ome, testi ng for anti- SS-A/ Ro antib mary shoul d be consi dered . Anti- Sondra-1 antib mary shoul d be consi dered for clini artemio suspe cted infla mmato ry myopa kriss . AC-0: Negat eliecer Inter natio nal Conse nsus on SAMIA Patte rns (http s://d oi.or g/10. 1515/ [facility]- 2017- 0052) For addit ional infor ramin lares refer to http: //[facility].Que stDia gnost ics.c om/fa q/FAQ 177 (This link is being provi ded for infor matio nal/ educa mamie l purpo ses only. ) Not Available [facility] [address] [place], [address], 01/22/2025 20:47:55 01/21/20 25 01/20/2025 XR, wrist , 3 or more view [facility] [address] [place], [place] [id number] [phone] Namita gonzalez Name: ALBERTINA gonzalez : [birth year] Patirommel t Orderi ng Provid er: CARLTON LUI EXAM DATE: 2024 EXAM: XR RT WRIST COMPLE TE HISTOR Y: Probab le lesion s along the right wrist COMPAR TRISTIN: None. FINDIN GS: The bones of the right wrist are normal in alignm ent. There is no eviden ce of fractu re. There are mild degene rative change s. There is mild margin al spurri ng the first carpom etacar pal joint, trisca phe joint, radioc arpal joint and distal radiou lnar joint. There is a carpal boss. There is soft tissue promin ence dorsal to the carpal boss. IMPRES ANASTACIO: 1. There are mild degene rative change s in the right wrist. Interp reted By: Ethan knox MD Electr onical ly Signed By: Ethan knox MD on 025 11:01 [facility] [address] [place], [address], 01/20/2025 12:13:53 Result Notes None recorded. Problems No Known Problems Procedures Surgical History Date Name Laterality Status Provider Name and Address Organization Details Recorded Time Injection Tendon Sheath/Ligament completed JIM LUI MD [address] [place], [address], [facility] 01/21/2025 12:52:58 Puncture Aspiration Abscess, Hematoma, Bulla, Cyst completed JIM LUI MD [address] [place], [address], [facility] 01/21/2025 12:53:40 Imaging Results None recorded. Procedure Notes None recorded. Medical Equipment None Reported. Allergies Allergen ID Allergen Name Allergen Category Reaction Reaction Severity Criticality Documentation Date Start Date Code Code System Note Provider Name and Address Organization Details Recorded Time 677952 Product containin g penicilli n (product) medicatio n Not available Not available Not available 01/20/2025 39070 8001 SNOMED Jessica Seven [facility] 09:51:06 Medications Name Sig Start Date Stop Date Status Note LastModified by Organization Details LastModified Time gabapentin 100 mg tablet Take 1 tablet 3 times a day by oral route. active Not Available Not Available No t Available Synthroid active Not Available Not Lorna ilable Not Available Wellbutrin SR active Not Available Not Available Not Available Lexapro active Not Available Not Avail able Not Available Vitals Date Recorded Body height Body mass index (BMI) Body weight Provider Name and Address Organization Details Last Updated DateTime 01/20/2025 175.26 cm 29.5 kg/m2 43724.47 g Jessica Seven [facility] 01/20/2025 09:51:15 Social History None recorded. Functional Status None recorded. Mental Status None recorded. Family History Nothing Reported. Medical History No medical history recorded. Gynecological HistoryNo gynecological history recorded. 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 Health Concerns Section Related Observation LastModified by Organization Detai ls LastModified Time None Recorded Concern Status LastModified by Organization Details LastModified Time None Recorded Advance Directives Directive None Recorded Payers Insurance Date Sequence Insurance Name Policy Number Policy [employer] Covered Member ID [employer] Member ID Guarantor Name 01/24/2025 1 [id number] ([facility]) [id number] Albertina Thibodeauxjose j [id number] Albertina Jack Notes Date Note Type Note Provider Name and Address Organization Details Recorded Time 01/20/2025 text/html 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 She presents to the clinic for evaluation of a mass over the dorsal right wrist and a nodule in the right palm. Reports some soreness along the dorsal wrist but no pain in the palm. She first noticed the nodule in the palm 2 to 3 weeks ago. The prominence over the dorsal wrist has been present for 3 to 4 weeks. Denies any preceding injury. Reports that her mom has a history of rheumatoid arthritis. [facility]: Aureliano Davidson MD Hand dominance: RightLocation: Right Hand Pain level: 4 /10 Duration:3-4 weeks Recent Surgery: NoProcedure:Date of surgery:Surgeon(If Known): In office procedure? No Previous upper extremity surgery? NoProcedure:Approxi mate date of surgery:Surgeon (if known):Have you or an immediate family member ever seen our hand surgeons before? No Currently employed?: Full timeEmployer: selfOccupation: business box truck owner operator Are they currently working? Yes Is this injury associated with a Workers Compensation claim? No Patient arrived in: cast splint surgica l dressing OTC brace n/a Skating Rink Ice Maker Strength: right: left: JIM LUI MD [address] [place], [address], [facility] 01/21/2025 12:56:25 OBGyn Episode No OBEpisode recorded.
--- OUTSIDE RECORDS SUMMARY | 2025-02-15 12:26 | XMS_ITS | Data Portability ---
Author Organization [facility] Address [address] [place] [address] Care Team Providers Care Respiratory Therapy Assistant Name Role Phone BROCKMARCI GORDON Primary Care Provider Assessment Encounter Date Assessment Date Assessment LastModified by Organization Details LastModified Time 04/02/2021 04/02/2021 Annual gynecological exam performed. Patient will come back in a year unless there are new symptoms. Not available 03/27/2021 14:02:42 04/23/2022 04/23/2022 Annual gynecological exam performed. Patient will come back in a year unless there are new symptoms. Not available 04/23/2022 08:00:22 06/30/2023 06/30/2023 Annual gynecological exam performed. Patient will come back in a year unless there are new symptoms. Not available 06/30/2023 10:21:33 08/30/2024 08/30/2024 Annual gynecological exam performed. Patient will come back in a year unless there are new symptoms. Not available 08/30/2024 08:46:32 Plan of Treatment Reminders Order Date Submit Date Provider Last Modified By Organization Details Last Modified Time Details Appointments None recorded. Lab bacterial vaginosis + vaginitis panel, vaginal 2023 024 [place] [facility], [address], [address], [place], [address], 07:06:57 culture, urine 2023 024 [place] [facility], [address], [place] [address], [place], [address], 4 03:07:19 urinalysis, complete 2023 024 [place] [facility], [address], [place] [address], [place], [address], 4 03:07:18 culture, urine 2022 023 [place] [facility], [address], [place] [address], [place], [address], 3 06:17:15 urinalysis, complete 2022 023 [place] [facility], [address], [place] [address], [place], [address], 3 06:17:13 cytology report, thin prep, smear or scraping, cervical or vaginal 2022 023 [place] [facility], [address], [place] [address], [place], [address], 3 10:37:14 culture, urine 2021 022 [place] [facility], [address], [place] [address], [place], [address], 2 03:07:54 urinalysis, complete 2021 022 [place] [facility], [address], [place] [address], [place], [address], 2 03:07:54 Referral gastroenter ologist referral 2021 [email or web address] Alejandro Paz MD, [address] [place] [address] , [facility] [address], [place], [address], 3 14:57:15 Procedures None recorded. Surgeries None recorded. Imaging MAMMO, screening, digital, bilateral 2023 024 [facility] Scheduling Department -New Scheduling Process, [address], [place], [address], 5 11:47:57 DEXA, vertebral fracture assessment 2022 023 [facility] (Centralized Scheduling), [address], [place], [address], 3 13:32:52 MAMMO, screening, digital, bilateral - after 07/29/232022 023 [facility] (Centralized Scheduling), [place], [address], 3 13:33:37 MAMMO, screening, digital, bilateral - due after 07/23 022 [facility] (Centralized Scheduling), [address] [place], [address], 2 16:05:21 MAMMO, screening, digital, bilateral - please schedule after 07/10/20212020 021 [facility] (Centralized Scheduling), [place] [address] [place], [address], 1 15:43:00 Medication Orders clotrimazol e-betametha sone 1 %-0.05 % topical cream 2023 024 [facility], [address] [place], [address], 4 10:41:52 Diflucan 150 mg tablet 2023 024 [facility], [address] [place], [address], 4 09:56:26 terconazole 0.4 % vaginal cream 2023 024 [facility], [address], [place], [address], 4 09:56:25 clobetasol 0.05 % topical ointment 2023 024 [facility] [facility], [address], [place], [address], 4 10:41:48 medroxyprog esterone 5 mg tablet 2023 024 [facility], [address] , [place], [address], 4 10:41:50 estradiol 0.5 mg tablet 2023 024 [facility], [address] , [place], [address], 4 10:41:46 fluconazole 150 mg tablet 2023 024 [facility], [address] , [place], [address], 4 16:20:50 clotrimazol e-betametha sone 1 %-0.05 % topical cream 2023 024 [facility], [address] [place], [address], 4 17:31:33 Premarin 0.625 mg/gram vaginal cream [address], [address] [place] [address], [place], [address], 3 14:42:12 estradiol 0.5 mg tablet 2021 022 [facility], [address] [place], [address], 18:45:18 Provera 5 mg tablet 2021 022 lshowjúnior [facility], [address] [place], [address], 18:45:18 estradiol 0.5 mg tablet 2020 021 lshowjúnior [facility], [address] [place], [address], 22:45:32 Provera 5 mg tablet 2020 021 lshowjúnior [facility], [address] [place], [address], 18:30:21 Patient TargetsNo targets recorded. Patient Instructions Encounter Date Encounter Id Patient Instructions Last Modified By Organization Details Last Modified Time 04/02/2021 [id number] A healthy lifestyle: care instructions lshower Not available 04/02/2021 18:30:21 04/23/2022 [id number] learning about healthy weight lshower Not available 04/23/2022 18:45:18 body mass index: care instructions lshower Not available 04/23/2022 18:45:18 A healthy lifestyle: care instructions lshower Not available 04/23/2022 18:45:18 06/30/2023 [id number] A healthy lifestyle: care instructions lshower Not available 06/30/2023 22:42:40 04/08/2024 [id number] See HPI Encourag e medication as directed Call if s/s not improved in 1-2 wks Not available 04/09/2024 13:00:08 08/30/2024 [id number] medical record request* - Could you all please fax us patient lab work from approximately the past 1 year for our records, thanks. Not available 09/24/2024 15:51:27 learning about healthy weight lshower Not available 08/30/2024 23:11:19 body mass index: care instructions lshower Not available 08/30/2024 23:11:19 A healthy lifestyle: care instructions lshower Not available 08/30/2024 23:11:19 Call if not seei ng resolution of the groin skin changes within the month, or if problems with trial of complete discontinuation of HRT. Otherwise annual exam 1 year lshower Not available 08/31/2024 10:40:09 Reason for Referral [employer] Referral for Screening for malignant neoplasm of colon 10 year screening due 06/2022 Referring Physician: Dana Maxwell, RUBBER WASHER, Encounter Date: 04/23/2022 Results Created Date Observation Date Name Description Value Unit Range Abnormal Flag Note LastModifiedBy Organization Detail LastModifiedTime 04/23/20 22 04/24/2022 URINA LYSIS , COMPL ETE specific gravity 1.008 1.005- 1.030 Not Available [facility] ([facility]) [address] [place], [address], 04/25/2022 03:07:54 04/23/20 22 04/24/2022 URINA LYSIS , COMPL ETE pH 6.5 5.0-7. 5 Not Available [facility] ([facility]) [address] [place], [address], 04/25/2022 03:07:54 04/23/20 22 04/24/2022 URINA LYSIS , COMPL ETE urine-color Yellow yellow Not Available [facility]) [address] [place], [address], 04/25/2022 03:07:54 04/23/20 22 04/24/2022 URINA LYSIS , COMPL ETE appearance Clear clear Not Available [facility] ([facility]) [address] [place], [address], 04/25/2022 03:07:54 04/23/20 22 04/24/2022 URINA LYSIS , COMPL ETE WBC esterase Negati ve negati ve Not Available [facility] ([facility]) [address] [place], [address], 04/25/2022 03:07:54 04/23/20 22 04/24/2022 URINA LYSIS , COMPL ETE protein Negati ve negati ve/tra ce Not Available [facility] ([facility]) [address] [place], [address], 04/25/2022 03:07:54 04/23/20 22 04/24/2022 URINA LYSIS , COMPL ETE glucose Negati ve negati ve Not Available [facility] ([facility]) [address] [place], [address], 04/25/2022 03:07:54 04/23/20 22 04/24/2022 URINA LYSIS , COMPL ETE ketones Negati ve negati ve Not Available [facility] ([facility]) [address] [place], [address], 04/25/2022 03:07:54 04/23/20 22 04/24/2022 URINA LYSIS , COMPL ETE occult blood Negati ve negati ve Not Available [facility] ([facility]) [address] [place], [address], 04/25/2022 03:07:54 04/23/20 22 04/24/2022 URINA LYSIS , COMPL ETE bilirubin Negati ve negati ve Not Available [facility] ([facility]) [address] [place], [address], 04/25/2022 03:07:54 04/23/20 22 04/24/2022 URINA LYSIS , COMPL ETE urobilinogen ,semi-qn 0.2 mg/dL 0.2-1. 0 Not Available [facility] ([facility]) [address] [place], [address], 04/25/2022 03:07:54 04/23/20 22 04/24/2022 URINA LYSIS , COMPL ETE nitrite, urine Negati ve negati ve Not Available [facility] ([facility]) [address] [place], [address], 04/25/2022 03:07:54 04/23/20 22 04/24/2022 URINA LYSIS , COMPL ETE microscopic examination Commen t Micro scopi c follo ws if indic ated. Not Available [facility] ([facility]) [address] [facility], [place], [address], 04/25/2022 03:07:54 04/23/20 22 04/24/2022 URINA LYSIS , COMPL ETE microscopic examination See below: Micro scopi c was indic ated and was perfo rmed. Not Available [facility] ([facility]) [address] [facility], [place], [address], 04/25/2022 03:07:54 04/23/20 22 04/24/2022 URINA LYSIS , COMPL ETE WBC None seen /hpf 0 - 5 Not Available [facility] ([facility]) [address] [facility], [place], [address], 04/25/2022 03:07:54 04/23/20 22 04/24/2022 URINA LYSIS , COMPL ETE RBC None seen /hpf 0 - 2 Not Available [facility] ([facility]) [address] [facility], [place], [address], 04/25/2022 03:07:54 04/23/20 22 04/24/2022 URINA LYSIS , COMPL ETE epithelial cells (non renal) None seen /hpf 0 - 10 Not Available [facility] ([facility]) [address] [facility], [place], [address], 04/25/2022 03:07:54 04/23/20 22 04/24/2022 URINA LYSIS , COMPL ETE epithelial cells (renal) ELECTRON BEAM WELDER SETTER Not Available [facility] ([facility]) [address] [place], [address], 04/25/2022 03:07:54 04/23/20 22 04/24/2022 URINA LYSIS , COMPL ETE casts None seen /lpf none seen Not Available [facility] ([facility]) [address] [facility], [place], [address], 04/25/2022 03:07:54 04/23/20 22 04/24/2022 URINA LYSIS , COMPL ETE cast type ELECTRON [employer] WEL[employer] SETTER Not Available [facility] ([facility]) [address] [facility], [place], [address], 04/25/2022 03:07:54 04/23/20 22 04/24/2022 URINA LYSIS , COMPL ETE crystals ELECTRON [employer] WEL[employer] SETTER Not Available [facility] ([facility]) [address] [place], [address], 04/25/2022 03:07:54 04/23/20 22 04/24/2022 URINA LYSIS , COMPL ETE crystal type ELECTRON BEAM WELDER SETTER Not Available [facility] [address] [facility], [place], [address], 04/25/2022 03:07:54 04/23/20 22 04/24/2022 URINA LYSIS , COMPL ETE mucus threads ELECTRON [employer] WEL[employer] SETTER Not Available [facility] ([facility]) [address] [facility], [place], [address], 04/25/2022 03:07:54 04/23/20 22 04/24/2022 URINA LYSIS , COMPL ETE bacteria None seen none seen/f ew Not Available [facility] ([facility]) [address] [facility], [place], [address], 04/25/2022 03:07:54 04/23/20 22 04/24/2022 URINA LYSIS , COMPL ETE yeast ELECTRON [employer] WEL[employer] SETTER Not Available [facility] ([facility]) [address] [place], [address], 04/25/2022 03:07:54 04/23/20 22 04/24/2022 URINA LYSIS , COMPL ETE trichomonas ELECT[employer]EL[employer]TER Not Available [facility] ([facility]) [address] [facility], [place], [address], 04/25/2022 03:07:54 04/23/2004/24/2022 URINA LYSIS , COMPL ETE comment ELECTRON [employer] WELDER SETTER Not Available [facility] ([facility]) [address] [facility], [place], [address], 04/25/2022 03:07:54 04/23/20 22 04/24/2022 URINE CULTU RE, ROUTI NE urine culture, routine Final report Not Available [facility] ([facility]) [address] [facility], [place], [address], 04/25/2022 03:07:54 04/23/2004/24/2022 URINE CULTU RE, ROUTI NE result 1 Commen t Mixed uroge nital sarah 10,00 0-25, 000 colon y formi ng units per mL Not Available [facility] ([facility]) [address] [facility], [place], [address], 04/25/2022 03:07:54 06/30/2007/01/2023 URINA LYSIS , COMPL ETE specific gravity 1.012 1.005- 1.030 Not Available [facility] ([facility]) [address] [place], [address], 07/02/2023 06:17:13 06/30/2007/01/2023 URINA LYSIS , COMPL ETE pH 6.0 5.0-7. 5 Not Available [facility] ([facility]) [address] [place], [address], 07/02/2023 06:17:13 06/30/2007/01/2023 URINA LYSIS , COMPL ETE urine-color Yellow yellow Not Available [facility] ([facility]) [address] [place], [address], 07/02/2023 06:17:13 06/30/2007/01/2023 URINA LYSIS , COMPL ETE appearance Clear clear Not Available [facility] ([facility]) [address] [facility], [place], [address], 07/02/2023 06:17:13 06/30/2007/01/2023 URINA LYSIS , COMPL ETE WBC esterase Negati ve negati ve Not Available [facility] ([facility]) [address] [facility], [place], [address], 07/02/2023 06:17:13 06/30/2007/01/2023 URINA LYSIS , COMPL ETE protein Negati ve negati ve/tra ce Not Available [facility] ([facility]) [address] [facility], [place], [address], 07/02/2023 06:17:13 06/30/2007/01/2023 URINA LYSIS , COMPL ETE glucose Negati ve negati ve Not Available [facility] ([facility]) [address] [facility], [place], [address], 07/02/2023 06:17:13 06/30/2007/01/2023 URINA LYSIS , COMPL ETE ketones Negati ve negati ve Not Available [facility] ([facility]) [address] [facility], [place], [address], 07/02/2023 06:17:13 06/30/2007/01/2023 URINA LYSIS , COMPL ETE occult blood Negati ve negati ve Not Available [facility] ([facility]) [address] [facility], [place], [address], 07/02/2023 06:17:13 06/30/2007/01/2023 URINA LYSIS , COMPL ETE bilirubin Negati ve negati ve Not Available [facility] ([facility]) [address] [place], [address], 07/02/2023 06:17:13 06/30/2007/01/2023 URINA LYSIS , COMPL ETE urobilinogen ,semi-qn 0.2 mg/dL 0.2-1. 0 Not Available [facility] ([facility]) [address] [facility], [place], [address], 07/02/2023 06:17:13 06/30/2007/01/2023 URINA LYSIS , COMPL ETE nitrite, urine Negati ve negati ve Not Available [facility] ([facility]) [address] [facility], [place], [address], 07/02/2023 06:17:13 06/30/2007/01/2023 URINA LYSIS , COMPL ETE microscopic examination Commen t Micro scopi c follo ws if indic ated. Not Available [facility] ([facility]) [address] [facility], [place], [address], 07/02/2023 06:17:13 06/30/2007/01/2023 URINA LYSIS , COMPL ETE microscopic examination See below: Micro scopi c was indic ated and was perfo rmed. Not Available [facility] ([facility]) [address] [facility], [place], [address], 07/02/2023 06:17:13 06/30/2007/01/2023 URINA LYSIS , COMPL ETE WBC None seen /hpf 0 - 5 Not Available [facility] ([facility]) [address] [place], [address], 07/02/2023 06:17:13 06/30/2007/01/2023 URINA LYSIS , COMPL ETE RBC None seen /hpf 0 - 2 Not Available [facility] ([facility]) [address] [place], [address], 07/02/2023 06:17:13 06/30/2007/01/2023 URINA LYSIS , COMPL ETE epithelial cells (non renal) 0-10 /hpf 0 - 10 Not Available [facility] ([facility]) [address] [facility], [place], [address], 07/02/2023 06:17:13 06/30/2007/01/2023 URINA LYSIS , COMPL ETE epithelial cells (renal) ELECTRON BEAM WELDER SETTER Not Available [facility] ([facility]) [address] [facility], [place], [address], 07/02/2023 06:17:13 06/30/2007/01/2023 URINA LYSIS , COMPL ETE casts None seen /lpf none seen Not Available [facility] ([facility]) [address] [facility], [place], [address], 07/02/2023 06:17:13 06/30/2007/01/2023 URINA LYSIS , COMPL ETE cast type ELECTRON BEAM WELDER SETTER Not Available [facility] ([facility]) [address] [facility], [place], [address], 07/02/2023 06:17:13 06/30/2007/01/2023 URINA LYSIS , COMPL ETE crystals ELECTRON BEAM WELDER SETTER Not Available [facility] ([facility]) [address] [facility], [place], [address], 07/02/2023 06:17:13 06/30/2007/01/2023 URINA LYSIS , COMPL ETE crystal type ELECTRON BEAM WELDER SETTER Not Available [facility]) [address] [facility], [place], [address], 07/02/2023 06:17:13 06/30/2007/01/2023 URINA LYSIS , COMPL ETE mucus threads ELECTRON BE[employer] WELDER SETTER Not Available [facility]) [address] [facility], [place], [address], 07/02/2023 06:17:13 06/30/2007/01/2023 URINA LYSIS , COMPL ETE bacteria None seen none seen/f ew Not Available [facility] ([facility]) [address] [facility], [place], [address], 07/02/2023 06:17:13 06/30/2007/01/2023 URINA LYSIS , COMPL ETE yeast ELECTRON BEAM WELDER SETTER Not Available [facility] ([facility]) [address] [facility], [place], [address], 07/02/2023 06:17:13 06/30/2007/01/2023 URINA LYSIS , COMPL ETE trichomonas ELECTRON BEAM WELDER SETTER Not Available [facility] ([facility]) [address] [facility], [place], [address], 07/02/2023 06:17:13 06/30/2007/01/2023 URINA LYSIS , COMPL ETE comment ELECTRON BEAM WELDER SETTER Not Available [facility] ([facility]) [address] [facility], [place], [address], 07/02/2023 06:17:13 06/30/2007/02/2023 URINE CULTU RE, ROUTI NE urine culture, routine Final report Not Available [facility] ([facility]) [address] [facility], [place], [address], 07/02/2023 06:17:14 06/30/2007/02/2023 URINE CULTU RE, ROUTI NE result 1 COMMEN T Cultu re shows less than 10,00 0 colon y formi ng units of bacte diego per milena liter of urine . This colon y count is not gener ally consi dered to be clini artemio signi fican t. Not Available [facility] ([facility]) [address] [facility], [place], [address], 07/02/2023 06:17:14 06/30/2007/01/2023 IGP, APTIM A HPV, RFX 16/18 ,45 HPV aptima Negati ve negati ve This nucle ic acid ampli ficat ion test detec ts fourt een high- risk HPV types (16,1 8,31, 33,35 ,39,4 5,51, 52,56 ,58,5 9,66, 68) witho ut diffe renti ation . Not Available [facility] ([facility]) [address] [place], [address], 07/02/2023 10:37:14 06/30/2007/02/2023 IGP, APTIM A HPV, RFX 16/18 ,45 diagnosis: Rochelle gonzalez NEGAT ELIECER FOR INTRA EPITH ELIAL LESIO N OR MALIG RADHA . THIS SPECI MEN WAS RESCR EENED PART OF OUR QUALI TY CONTR OL PROGR AM. Not Available [facility] ([facility]) [address] [facility], [place], [address], 07/02/2023 10:37:14 06/30/2007/02/2023 IGP, APTIM A HPV, RFX 16/18 ,45 specimen adequacy: Rochelle gonzalez Satis facto ry for evalu ation . Endoc ervic al and/o r squam ous metap lasti c cells (endo cervi wes compo nent) are prese nt. Not Available [facility] ([facility]) [address] [facility], [place], [address], 07/02/2023 10:37:14 06/30/2007/02/2023 IGP, APTIM A HPV, RFX 16/18 ,45 clinician provided ICD10: Rochelle gonzalez Z12.4 N39.3 Not Available [facility] ([facility]) [address] [place], [address], 07/02/2023 10:37:14 06/30/2007/02/2023 IGP, APTIM A HPV, RFX 16/18 ,45 performed by: Britney Carson (ASCP ) Not Available [facility] ([facility]) [address] [place], [address], 07/02/2023 10:37:14 06/30/2007/02/2023 IGP, APTIM A HPV, RFX 16/18 ,45 QC reviewed by: Rochelle leon Cytot jacquelyn gonzalez Not Available [facility] ([facility]) [address] [place], [address], 07/02/2023 10:37:14 06/30/2007/02/2023 IGP, APTIM A HPV, RFX 16/18 ,45 . . Not Available [facility] ([facility]) [address] [place], [address], 07/02/2023 10:37:14 06/30/2007/02/2023 IGP, APTIM A HPV, RFX 16/18 ,45 note: Rochelle gonzalez The Pap smear is a scree sindi test charmaine landeros to aid in the detec tion of meena ligna nt and malig nant condi tions of the uteri ne cervi x. It is not a diagn ostic proce dure and shoul d not be used as the sole means of detec ting cervi wes cance r. Both false -posi tive and false -nega tive repor ts do occur . Not Available [facility] ([facility]) [address] [place], [address], 07/02/2023 10:37:14 06/30/2007/02/2023 IGP, APTIM A HPV, RFX 16/18 ,45 test methodology: Rochelle gonzalez This liqui d based ThinP rep(R ) pap test was scree tigre with the use of an image guide wilfredo loja Not Available [facility] ([facility]) [address] [place], [address], 07/02/2023 10:37:14 06/30/2007/02/2023 IGP, APTIM A HPV, RFX 16/18 ,45 HPV genotype reflex Commen t Crite diego not met, HPV Genot ype not perfo rmed. Not Available [facility] ([facility]) [address] [place], [address], 07/02/2023 10:37:14 08/30/20 24 08/31/2024 URINA LYSIS , COMPL ETE specific gravity 1.006 1.005- 1.030 normal Not Available [facility] ([facility]) [address] [place], [address], 09/01/2024 03:07:18 08/30/20 24 08/31/2024 URINA LYSIS , COMPL ETE pH 6.5 5.0-7. 5 normal Not Available [facility] ([facility]) [address] [place], [address], 09/01/2024 03:07:18 08/30/20 24 08/31/2024 URINA LYSIS , COMPL ETE urine-color Yellow yellow Not Available [facility]) [address] [place], [address], 09/01/2024 03:07:18 08/30/20 24 08/31/2024 URINA LYSIS , COMPL ETE appearance Clear clear Not Available [facility] ([facility]) [address] [place], [address], 09/01/2024 03:07:18 08/30/20 24 08/31/2024 URINA LYSIS , COMPL ETE WBC esterase Negati ve negati ve Not Available [facility] ([facility]) [address] [place], [address], 09/01/2024 03:07:18 08/30/20 24 08/31/2024 URINA LYSIS , COMPL ETE protein Negati ve negati ve/tra ce Not Available [facility] ([facility]) [address] [place], [address], 09/01/2024 03:07:18 08/30/20 24 08/31/2024 URINA LYSIS , COMPL ETE glucose Negati ve negati ve Not Available [facility] ([facility]) [address] [place], [address], 09/01/2024 03:07:18 08/30/20 24 08/31/2024 URINA LYSIS , COMPL ETE ketones Negati ve negati ve Not Available [facility] ([facility]) [address] [place], [address], 09/01/2024 03:07:18 08/30/20 24 08/31/2024 URINA LYSIS , COMPL ETE occult blood Negati ve negati ve Not Available [facility] ([facility]) [address] [place], [address], 09/01/2024 03:07:18 08/30/20 24 08/31/2024 URINA LYSIS , COMPL ETE bilirubin Negati ve negati ve Not Available [facility] ([facility]) [address] [place], [address], 09/01/2024 03:07:18 08/30/20 24 08/31/2024 URINA LYSIS , COMPL ETE urobilinogen ,semi-qn 0.2 mg/dL 0.2-1. 0 normal Not Available [facility] ([facility]) [address] [place], [address], 09/01/2024 03:07:18 08/30/20 24 08/31/2024 URINA LYSIS , COMPL ETE nitrite, urine Negati ve negati ve Not Available [facility] ([facility]) [address] [place], [address], 09/01/2024 03:07:18 08/30/20 24 08/31/2024 URINA LYSIS , COMPL ETE microscopic examination Commen t Micro scopi c follo ws if indic ated. Not Available [facility] ([facility]) [address] [facility], [place], [address], 09/01/2024 03:07:18 08/30/20 24 08/31/2024 URINA LYSIS , COMPL ETE microscopic examination See below: Danielito shrestha c was indic ated and was perfo rmed. Not Available [facility] ([facility]) [address] [facility], [place], [address], 09/01/2024 03:07:18 08/30/20 24 08/31/2024 URINA LYSIS , COMPL ETE WBC None seen /hpf 0 - 5 Not Available [facility] ([facility]) [address] [facility], [place], [address], 09/01/2024 03:07:18 08/30/20 24 08/31/2024 URINA LYSIS , COMPL ETE RBC None seen /hpf 0 - 2 Not Available [facility] ([facility]) [address] [facility], [place], [address], 09/01/2024 03:07:18 08/30/20 24 08/31/2024 URINA LYSIS , COMPL ETE epithelial cells (non renal) None seen /hpf 0 - 10 Not Available [facility] ([facility]) [address] [facility], [place], [address], 09/01/2024 03:07:18 08/30/20 24 08/31/2024 URINA LYSIS , COMPL ETE epithelial cells (renal) ELECTRON BEAM WELDER SETTER Not Available [facility] ([facility]) [address] [facility], [place], [address], 09/01/2024 03:07:18 08/30/20 24 08/31/2024 URINA LYSIS , COMPL ETE casts None seen /lpf none seen Not Available [facility] ([facility]) [address] [facility], [place], [address], 09/01/2024 03:07:18 08/30/20 24 08/31/2024 URINA LYSIS , COMPL ETE cast type ELECTRON BEAM WELDER SETTER Not Available [facility] ([facility]) [address] [facility], [place], [address], 09/01/2024 03:07:18 08/30/20 24 08/31/2024 URINA LYSIS , COMPL ETE crystals ELECTRON BEAM WELDER SETTER Not Available [facility] ([facility]) [address] [facility], [place], [address], 09/01/2024 03:07:18 08/30/20 24 08/31/2024 URINA LYSIS , COMPL ETE crystal type ELECTRON BEAM WELDER SETTER Not Available [facility] ([facility]) [address] [facility], [place], [address], 09/01/2024 03:07:18 08/30/20 24 08/31/2024 URINA LYSIS , COMPL ETE mucus threads ELECTRON BEAM WELDER SETTER Not Available [facility] ([facility]) [address] [facility], [place], [address], 09/01/2024 03:07:18 08/30/20 24 08/31/2024 URINA LYSIS , COMPL ETE bacteria None seen none seen/f ew Not Available [facility] ([facility]) [address] [facility], [place], [address], 09/01/2024 03:07:18 08/30/20 24 08/31/2024 URINA LYSIS , COMPL ETE yeast 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 Not Available [facility] ([facility]) [address] [facility], [place], [address], 09/01/2024 03:07:18 08/30/20 24 08/31/2024 URINA LYSIS , COMPL ETE trichomonas ELECTRON BEAM WELDER SETTER Not Available [facility] ([facility]) [address] [facility], [place], [address], 09/01/2024 03:07:18 08/30/20 24 08/31/2024 URINA LYSIS , COMPL ETE comment ELECTRON BEAM WELDER SETTER Not Available [facility] ([facility]) [address] [facility], [place], [address], 09/01/2024 03:07:18 08/30/20 24 08/31/2024 URINE CULTU RE, ROUTI NE urine culture, routine Final report Not Available [facility] ([facility]) [address] [place], [address], 09/01/2024 03:07:19 08/30/20 24 08/31/2024 URINE CULTU RE, ROUTI NE result 1 COMMEN T Mixed uroge nital sarah Less than 10,00 0 colon ies/m L Not Available [facility] ([facility]) [address] [facility], [place], [address], 09/01/2024 03:07:19 08/30/20 24 09/01/2024 NUSWA B VAGIN ITIS (VG) trich vag by EYAD Negati ve negati ve Not Available [facility] ([facility]) [address] [facility], [place], [address], 09/02/2024 07:06:57 08/30/20 24 09/02/2024 NUSWA B VAGIN ITIS (VG) atopobium vaginae Modera te - 1 score Not Available [facility] ([facility]) [address] [place], [address], 09/02/2024 07:06:57 08/30/20 24 09/02/2024 NUSWA B VAGIN ITIS (VG) bvab 2 Low - 0 score Not Available [facility] ([facility]) [address] [place], [address], 09/02/2024 07:06:57 08/30/20 24 09/02/2024 NUSWA B VAGIN ITIS (VG) megasphaera 1 Low - 0 score Calcu late total score by yon gaspar the 3 indiv idual bacte rial vagin osis (BV) marke r score s toget her. Total score is inter prete d as follo ws: Total score 0-1: Indic ates the absen ce of BV. Total score 2: Indet ermin ate for BV. Addit ional clini wes data shoul d be evalu ated to estab say a diagn osis. Total score 3-6: Indic ates the prese nce of BV. Not Available [facility] ([facility]) [address] [facility], [place], [address], 09/02/2024 07:06:57 08/30/20 24 09/02/2024 NUSWA B VAGIN ITIS (VG) joycelyn albicans, EYAD Negati ve negati ve Not Available [facility] ([facility]) [address] [place], [address], 09/02/2024 07:06:57 08/30/20 24 09/02/2024 NUSWA B VAGIN ITIS (VG) joycelyn glabrata, EYAD Negati ve negati ve Not Available [facility] ([facility]) [address] [place], [address], 09/02/2024 07:06:57 07/24/20 21 07/24/2021 MAMMO , scree sindi, digit al, bilat eral [facility] Name: SUZE MUHAMMADANDIE BATES [facility] Phys: Greg BOTELLO (Showe r), [place] [address] : 1959 Age: 61 Sex: F Acct: [id number] Loc: G.MAMM PHONE #: Exam Date: 2020 Status : DEP CLI FAX #: Rad# [id number] Unit# [id number] Admit Date: 2020 EXAMS: CPT CODE: [id number] SCN DIG BREAST TOMOSY N KAREN 16540 BILATE RAL DIGITA L SCREEN ING MAMMOG JAVIER WITH CAD AND 3D TOMOSY NTHESI S, 2020: CLINIC AL HISTOR Y:Rout ine screen ing. No breast proble ms Correl ation is made with prior mammog denton marion gaspar from 020 to 016. FINDIN GS: Bilate ral digita l MLO and CC views with CAD and 3D tomosy nthesi s were perfor med by Mariajose Madrigal RT. These demons trate scatte red fibrog landul ar densit ies, unchan ged in config uratio n from prior exams. There is no domina nt mass, nemesio ectura l distor tion, or suspic ious calcif icatio n bilate rally IMPRES ANASTACIO: STABLE NEGATI VE MAMMOG DENTON. RECOMM END ANNUAL SCREEN ING MAMMOG JAVIER. CAT1 - CATEGO RY 1, NEGATI VE 1YR - 1 YEAR DISCLA [place]: *The patien t with a palpab le abnorm ality, unexpl ained by breast imagin g, should be manage d on clinic al basis by the attend ing physic mike. *Breas lisa gaspar has a false negati ve rate of 15%. *The patien t was notifi ed by mail of the result s of this examin ation. *The patien t's inform ation was entere d into a remind er system with a target due date for the next mammog frances. *The mammog frances was review ed by a radiol ogist and CAD. Electr onical ly Signed by JOSEP KNOWLES MD on 2020 at 1313 Report ed and signed by: JOSEP KNOWLES MD PAGE 1 Signed Report (JAMIN NUED) [facility] Name: ZACHARIAH MUHAMMADSHOAIB [facility] Phys: Greg BOTELLO (Showe r), [place] [address] : 1959 Age: 61 Sex: F Acct: [id number] Loc: G.MAMM PHONE #: [phone] Exam Date: 2020 Status : DEP CLI FAX #: Rad# [id number] Unit# [id number] Admit Date: 2020 EXAMS: CPT CODE: [id number] 488 SCN DIG BREAST TOMOSY N KAREN 90137 CC: Rose Marie Johnson MD; [place] Maxwell Dictat ed Date/T hanna: 2020 (1313) Techno logist : NORRIS MADRIGAL (RT)(R ) Transc ribed Date/T hanna: 2020 (1313) Transc riptio nist: DR.HAG ROSSY Altamirano onic Signat ure Date/T hanna: 2020 (1313) Printe d Date/T hanna: 2020 (1504) BATCH NO: N/A PAGE 2 Signed Report CC'ed Logic: Orderi ng Provid er: SHOWER DANA Attend ing Provid er: SHOWER DANA Referr ing Provid er: SHOWER DANA Consul ting Provid er: LETY Abbasi [facility] (Centralized Scheduling) [address] [place] [address] [place], [address], 07/25/2021 08:07:36 07/29/20 22 07/29/2022 MAMMO , scree sindi, digit al, bilat eral [facility] Name: ZACHARIAH MUHAMMADSHOAIB [address] Phys: Greg BOTELLO (Showe r), [place] [address] : 1959 Age: 62 Sex: F Acct: [id number] Loc: G.MAMM PHONE #: Exam Date: 2021 Status : REG CLI FAX #: Rad# [id number] Unit# [id number] Admit Date: 2021 EXAMS: CPT CODE: [id number] SCN DIG BREAST TOMOSY N KAREN 89103 BILATE RAL DIGITA L SCREEN ING MAMMOG JAVIER WITH CAD AND 3D TOMOSY NTHESI S, 2021: CLINIC AL HISTOR Y: Routin e screen ing. No breast proble ms. Correl ation is made with prior mammog denton marion gaspar from 2020 to 017. FINDIN GS: Bilate ral digita l MLO and CC views with CAD and 3D tomosy nthesi s were perfor med by Mariajose Madrigal RT. These demons trate scatte red fibrog landul ar densit ies, unchan ged in config uratio n from prior exams. There is no domina nt mass, nemesio ectura l distor tion, or suspic ious calcif icatio n, bilate rally. IMPRES ANASTACIO: STABLE NEGATI VE MAMMOG DENTON. RECOMM END ANNUAL SCREEN ING MAMMOG JAVIER. CAT1 - CATEGO RY 1, NEGATI VE 1YR - 1 YEAR DISCLA [place]: *The patien t with a palpab le abnorm ality, unexpl ained by breast imagin g, should be manage d on clinic al basis by the attend ing physic mike. *Breas lisa ayonin chasity has a false negati ve rate of 15%. *The patien t was notifi ed by mail of the result s of this examin ation. *The patien t's inform ation was entere d into a remind er system with a target due date for the next mammog frances. *The mammog frances was review ed by a radiol ogist and CAD. Electr onical ly Signed by JOSEP KNOWLES MD on 2021 at 1346 Report ed and signed by: JOSEP KNOWLES MD PAGE 1 Signed Report (JAMIN NUED) [facility] Name: ZACHARIAH MUHAMMAD PAULO [address] [facility] Phys: Greg BOTELLO (Showe r), [place] [address] : 1959 Age: 62 Sex: F Acct: [id number] Loc: G.MAMM PHONE #: Exam Date: 2021 Status : REG CLI FAX #: Rad# [id number] Unit# [id number] Admit Date: 2021 EXAMS: CPT CODE: [id number] 993 SCN DIG BREAST TOMOSY N KAREN 78275 CC: Rose Marie Johnson MD; [place] Maxwell Dictat ed Date/T hanna: 2021 (1346) Techno logist : NORRIS MADRIGAL (RT)(R ) Transc ribed Date/T hanna: 2021 (1346) Transc riptio nist: DR.HAG ROSSY Altamirano onic Signat ure Date/T hanna: 2021 (1346) Printe d Date/T hanna: 2021 (3044) BATCH NO: N/A PAGE 2 Signed Report CC'ed Logic: Orderi ng Provid er: SHOWER DANA Attend ing Provid er: SHOWER DANA Referr ing Provid er: SHOWER DANA Consul ting Provid er: LETY Abbasi [facility] (Centralized Scheduling) [address] [place] [address] , [place], [address], 08/06/2022 16:05:21 08/04/20 23 08/04/2023 DEXA, verte bral fract ure ass[facility] Name[facility] SUZE MUHAMMADANDIE Leonard [address] [place] [address] [employer] Phys: Greg BOTELLO (Showe r), [place] [address] : 1959 Age: 63 Sex: F Acct: [id number] Loc: G.MAMM PHONE #: Exam Date: 2022 Status : REG CLI FAX #: Rad# [id number] Unit# [id number] Admit Date: 2022 EXAMS: CPT CODE: [id number] 916 DEXA BONE DENSIT Y WITH VFA 78997 DEXA SCAN AND LATERA L VERTEB RAL FRACTU RE ASSESS MENT, 2022: CLINIC AL HISTOR Y: 63-yea r-old postme nopaus al female with hypoth yroidi sm and family histor y of osteop orosis COMPAR TRISTIN: DEXA scan, 019 FINDIN GS: The T-scor e of the AP spine L1-L4 is 1.4. The patien t is consid ered normal accord ing to World Health Organi zation (WHO) criter ia. Fractu re risk is low. There is a signif icant increa se in the BMD compar ed with the most recent exam. The T-scor e of the left femora l neck is 0.2. The patien t is consid ered normal accord ing to World Health Organi zation (WHO) criter ia. Fractu re risk is low. There is no signif icant interv al change in the BMD compar ed with the most recent exam. The T-scor e of the right femora l neck is 0.4. The patien t is consid ered normal accord ing to World Health Organi zation (WHO) criter ia. Fractu re risk is low. There is no signif icant interv al change in the BMD compar ed with the most recent exam. The patien t's 10 year probab ility of a major osteop orotic fractu re is to 10.2%. The patien t's 10 year probab ility of a hip fractu re is 0.2%. A latera l image of the thorac olumba r spine was submit maria teresa for interp retati on. The spine is well visual ized from T5-L4. The visual ized verteb ral body height s and spinal alignm ent are intact . IMPRES ANASTACIO: 1. Stable normal bone minera l densit y. 2. No compre ssion fractu re of the visual ized thorac olumba r spine. RECOMM ENDATI ONS: All patien ts should ensure an adequa te intake of dietar y calciu m and vitami n D. The NOF recomm ends adults under age 50 need 1000 mg of calciu m and 400-80 0 IUs of vitami n E daily. Adults 50 and over need 1200 mg of calciu m and 800-10 00 IUs of vitami n D daily. Effect eliecer therap ies for preven tion of osteop orosis includ e bispho sphona patti and Evista . Hormon e therap y may be an option based on PAGE 1 Signed Report (JAMIN NUED) [facility] Name: ZACHARIAH MUHAMMAD [address] Phys: Greg BOTELLO (Showe r), [place] [address] : 1959 Age: 63 Sex: F Acct: [id number] Loc: VitorMAMM PHONE #: Exam Date: 2022 Status : REG CLI FAX #: [phone] Rad# [id number] Unit# [id number] Admit Date: 2022 EXAMS: CPT CODE: [id number] 916 DEXA BONE DENSIT Y WITH VFA 98555 review of risks and benefi ts of treat ent. FOLLOW UP: People with diagno sed cases of osteop orosis or a high risk for fractu re should have regula r bone minera l densit y tests. For patien ts eligib le for Medica re, routin e testin g is allowe d once every 2 years. The testin g freque ncy can be increa sed to 1 year for patien ts who have rapidl y progre ssing diseas e, those who are receiv ing or discon tinuin g medica l therap y to restor e bone mass, or have additi onal risk factor s. Electr onical ly Signed by JOSEP KNOWLES MD on 2022 at 1448 Report ed and signed by: JOSEP KNOWLES MD CC: Rose Marie Johnson MD; [place] Maxwell Dictat ed Date/T hanna: 2022 (1448) Techno logist : MARLEY WALSH Transc ribed Date/T hanna: 2022 (1448) Transc riptio nist: DR.HAG ROSSY Altamirano onic Signat ure Date/T hanna: 2022 (1448) Printe d Date/T hanna: 2022 (1451) BATCH NO: N/A PAGE 2 Signed Report CC'ed Logic: Orderi ng Provid er: SHOWER DANA Attend ing Provid er: SHOWER DANA Referr ing Provid er: SHOWER DANA Consul ting Provid er: LETY Abbasi [place] (Centralized Scheduling) [address] [place] [address] , [place], [address], 08/06/2023 13:36:10 08/05/20 23 08/04/2023 MAMMO , scree sindi, digit al, bilat eral [facility] Name: ZACHARIAH MUHAMMAD [address] [place] [address] Drive Phys: Greg BOTELLO (Showe r), [place], [place] [address] : 1959 Age: 63 Sex: F Acct: [id number] Loc: G.MAMM PHONE #: [phone] Exam Date: 2022 Status : DEP CLI FAX #: [phone] Rad# [id number] Unit# [id number] Admit Date: 2022 EXAMS: CPT CODE: [id number] [id number] SCN DIG BREAST TOMOSY N KAREN 09469 BILATE RAL DIGITA L SCREEN ING MAMMOG JAVIER WITH CAD AND 3D TOMOSY NTHESI S, 2022: CLINIC AL HISTOR Y: Routin e screen ing. No breast proble ms. Correl ation is made with prior mammog denton marion gaspar from 2021 to 04/16/20 18. FINDIN GS: Bilate ral digita l MLO and CC views with CAD and 3D tomosy nthesi s were perfor med by Mariajose Madrigal RT. These demons trate scatte red fibrog landul ar densit ies, unchan ged in config uratio n from prior exams. There is no domina nt mass, nemesio ectura l distor tion, or suspic ious calcif icatio n, bilate rally. IMPRES ANASTACIO: STABLE NEGATI VE MAMMOG DENTON. RECOMM END ANNUAL SCREEN ING MAMMOG JAVIER. CAT1 - CATEGO RY 1, NEGATI VE 1YR - 1 YEAR DISCLA [place]: *The patien t with a palpab le abnorm ality, unexpl ained by breast imagin g, should be manage d on clinic al basis by the attend ing physic mike. *Cecile gaspar has a false negati ve rate of 15%. *The patien t was notifi ed by mail of the result s of this examin ation. *The patien t's inform ation was entere d into a remind er system with a target due date for the next mammog frances. *The mammog frances was review ed by a radiol ogist and CAD. Electr onical ly Signed by JOSEP KNOWLES MD on 2022 at 1637 Report ed and signed by: JOSEP KNOWLES MD PAGE 1 Signed Report (JAMIN NUED) [facility] Name: ZACHARIAH MUHAMMADSHOAIB [address] [employer] Phys: Greg BOTELLO (Showe r), [place] [address] : 1959 Age: 63 Sex: F Acct: [id number] Loc: G.MAMM PHONE #: Exam Date: 2022 Status : DEP CLI FAX #: Rad# [id number] Unit# [id number] Admit Date: 2022 EXAMS: CPT CODE: [id number] 846 SCN DIG BREAST TOMOSY N KAREN 23690 CC: Rose Marie Johnson MD; [place] Maxwell Dictat ed Date/T hanna: 2022 (163) Techno logist : NORRIS MADRIGAL (RT)(R ) Transc ribed Date/T hanna: 2022 (163) Transc riptio nist: DR.HAG BLAIR Electr onic Signat ure Date/T hanna: 2022 (163) Printe d Date/T hanna: 2022 (0954) BATCH NO: N/A PAGE 2 Signed Report CC'ed Logic: Orderi ng Provid er: SHOWER DANA Attend ing Provid er: SHOWER DANA Referr ing Provid er: SHOWER DANA Consul ting Provid er: LET[facility] [address] [place] [address] [place], [address], 08/06/2023 13:33:37 10/11/19 25 09/30/2024 MAMMO , scree sindi, digit al, bilat eral No observ ation record ed. [facility] [address], [place], [address], 10/14/2024 16:09:52 Result Notes None recorded. 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 Vashtiwellington Mac null, [place] - [facility] 8 12:50:02 Hypothyr oidism 53228291 Active 2018 Vashti Mac [place], [place] - [facility] 9 14:49:20 Postmeno pausal bleeding 58144426 Active 2019 Dana Maxwell MD [address], [place], [address], [facility] - [facility] 0 12:05:25 Body mass index 30+ - obesity 757023785 Active 2019 Dana Maxwell MD [address], [place], [address], [facility] - [facility] 0 20:22:11 Mixed anxiety and depressi ve disorder 278289780 Active 2019 Dana Maxwell MD [address], [place], [address], [place] - [facility] 0 20:25:06 Microsco pic hematuri a 231651605 Active 2019 Dana Maxwell MD [address], [place], [address], [facility] - [facility] 0 20:25:11 Hormone replacem ent therapy Completed 04/02/2021 Vashti Mac [place], [place] - [facility] 1 16:53:48 Obesity 821409058 Active 2021 Dana Maxwell MD [address], [place], [address], [place] - [facility] 2 22:28:46 Nocturia 286031085 Active 2022 Dana Maxwell MD [address], [place], [address], [place] - [facility] 3 21:42:54 Female stress incontin ence 04948065 Active 2022 Dana Maxwell MD [address], [place], [address], [place] - [facility] 3 21:42:56 Candidia sis of vagina 63944743 Active 2023 Staci Freeman APRN [address], [place], [address], [place] - [facility] 4 16:15:16 Atypical squamous cells of undeterm ined signific ance on cervical Papanico laou smear 373008011 Active 2012, 2012, 2010, & 2006 Ernesto Barrientos RN [address], [place], [address], [place] - [facility] 7 09:21:27 Endometr itis 17603596 Active 2012 treated w/doxycy willard Ernesto Barrientos RN [address], [place], [address], [place] - [facility] 7 09:20:34 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 Procedures Surgical History Date Name Laterality Status Provider Name and Address Organization Details Recorded Time 023 Date of Last [facility] 08/06/2023 13:33:59 023 Most Recent Bone Density completed [facility] 08/06/2023 13:34:09 023 Date of Last Pap Smear completed [facility] - [facility] 07/03/2023 09:12:44 023 Date of Last Colonoscopy completed Vashti Mac [place] - [facility] 06/03/2023 14:57:34 020 Pediatric Cath completed Dana Maxwell MD [address], [place], [address], [place] [facility] 03/23/2020 20:26:03 020 Sonohysterography completed Dana Maxwell MD [address], [place], [address], [place] [facility] 10/22/2019 18:12:58 020 Endometrial Biopsy completed Dana Maxwell MD [address], [place], [address], [place] [facility] 09/14/2019 12:03:04 015 Back Surgery completed Ernesto Barrientos RN [address], [place], [address], [place] - [facility] 01/21/2017 09:27:35 013 Endometrial Biopsy completed Ernesto Barrientos RN [address], [place], [address], [place] [facility] 01/21/2017 09:28:26 012 Colposcopy completed Ernesto Barrientos RN [address], [place], [address], [place] - [facility] 01/21/2017 09:23:36 012 Colposcopy completed Ernesto Barrientos RN [address], [place], [address], [place] - [facility] 01/21/2017 09:27:51 Dilation and Curettage, sharp completed Ernesto Barrientos RN [address], [place], [address], [place] - [facility] 01/21/2017 09:28:02 Diagnostic Laparoscopy completed Ernesto Barrientos RN [address], [place], [address], [place] [facility] 01/21/2017 09:28:10 Cardiac Cath completed Vashti Mac [place] - [facility] 02/24/2018 12:50:23 Imaging Results None recorded. Procedure Notes None recorded. Medical Equipment None Reported. Allergies Allergen ID Allergen Name Allergen Category Reaction Reaction Severity Criticality Documentation Date Start Date Code Code System Note Provider Name and Address Organization Details Recorded Time 61382 Product containin g penicilli n (product) medicatio n hives Not available Not available 06/14/20162007 58905 8001 SNOMED React ion: Hives ; Comme nt: Penic illin ; Not Available [facility] 09:27:08 Medications Name Sig Start Date Stop Date Status Note LastModified by Organization Details LastModified Time eq 12 hour mucus relief 600mg tab 04/23 completed Not Available Not Available Not Available mucus er 600mg tab TAKE 1 TO 2 TABLETS BY MOUTH TWICE DAILY NEEDED FOR CONGESTI ON 04/23 completed Not Available Not Available Not Available compound drug 01/21 completed Not Available Not Available Not Available amoxicill in 500 mg capsule 11/04 completed Not Available Not Available Not Available terconazo le 0.4 % vaginal cream apply external to groin BID for 10 days. active Not Available Not Available No t Available Benadryl 50 mg capsule prn 07/17 completed Benadryl 50 mg;Recor ded Status: Recorded on: 06/11/20 08 10:03PM; Disconti nued Status: Disconti nued on: 07/17/20 09 11:14AM; User: marcel Not Available Not Available Not Available esterifie d estrogens -methylte stosteron e 0.625 mg-1.25 mg tablet take 1 tablet by oral route every other day, wean as tolerate d 02/24 completed Not Available Not Available Not Available azithromy ronny 250 mg tablet TAKE 2 TABLETS BY MOUTH ON DAY 1, AND THEN TAKE 1 TABLET BY MOUTH ONCE A DAY ON DAY 2 THROUGH DAY 5 04/23 completed Not Available Not Available Not Available fluconazo le 150 mg tablet take 1 tablet (150 mg) by oral route once, then repeat in 72 hours active Not Available Not Available No t Available medroxypr ogesteron e 2.5 mg tablet take 1 tablet by oral route every day 03/22 completed Not Available Not Available Not Available hydrocodo ne 5 mg-acetam inophen 325 mg tablet take 1 tablet by oral route every 4-6 hours as needed for back pain 01/17 completed hydrocod one-acet aminophe n 5-325 mg oral tablet;R ecorded Status: Recorded on: 12/28/19 15 10:26AM; Disconti nued Status: Disconti nued on: 01/18/20 16 3:39PM;U ser: granth Not Available Not Available Not Available fluconazo le 200 mg tablet 01/21 completed Not Available Not Available Not Available prednison e 20 mg tablet 06/30 completed Not Available Not Available Not Available medroxypr ogesteron e 5 mg tablet 1 tablet twice weekly (with use of estradio l 0.5 mg tablet), planning to wean off complete ly as tolerate d 2023 active Not Available Not Available Not Avai lable sulfameth oxazole 800 mg-trimet hoprim 160 mg tablet 01/21 completed Not Available Not Available Not Available levothyro xine 25 mcg tablet TAKE 1 TABLET BY MOUTH ONCE DAILY active Not Available Not Available No t Available Zantac 150 mg tablet take 1 tablet (150 mg) by oral route 2 times per day 10/22 completed Zantac 150 mg oral tablet;R ecorded Status: Recorded on: 05/20/20 12 4:26PM;D iscontin ued Status: Disconti nued on: 10/22/19 13 4:00PM;U ser: showerl; Printed: 05/20/20 12 Not Available Not Available Not Available estradiol 1 mg tablet TAKE 1 TABLET BY MOUTH EVERY DAY 04/02 completed Not Available Not Available Not Available benzonata te 100 mg capsule TAKE 1 CAPSULE BY MOUTH THREE TIMES DAILY NEEDED FOR COUGH 04/23 completed Not Available Not Available Not Available doxycycli ne monohydra te 100 mg capsule 1 po BID 01/21 completed Not Available Not Available Not Available levothyro xine 50 mcg tablet TAKE 1 TABLET BY MOUTH EVERY MORNING ON AN EMPTY STOMACH 04/23 completed Not Available Not Available Not Available cyanocoba raúl (vit B-12) 1,000 mcg/mL injection solution 04/02 completed Not Available Not Available Not Available nystatin 100,000 unit/gram topical cream Apply 1 applicat ion twice a day by topical route as needed. active Not Available Not Available No t Available clotrimaz ole-betam ethasone 1 %-0.05 % topical cream Disconti nue this cream 2023 active Not Available Not Available Not Avai lable gabapenti n 300 mg capsule Take 1 capsule twice a day by oral route. active Not Available Not Available No t Available esterifie d estrogens -methylte stosteron e 1.25 mg-2.5 mg tablet take 1 tablet by oral route daily 12/27 completed estrogen s-methyl testoste roula 1.25-2.5 mg oral tablet;R ecorded Status: Recorded on: 06/06/20 14 4:35PM;D iscontin ued Status: Disconti nued on: 12/28/19 15 11:23AM; User: [email or web address]; Est. Completi on: 12/04/19 15;Print ed: 06/06/20 14 Not Available Not Available Not Available mupirocin 2 % topical ointment 11/04 completed Not Available Not Available Not Available gabapenti n 100 mg capsule Take by oral route for 30 days. 08/30 completed Not Available Not Available Not Available estradiol 0.5 mg tablet 0.5 mg twice weekly, planning to wean off complete ly as tolerate d 2023 active Not Available Not Available Not Avai lable clobetaso l 0.05 % topical ointment APPLY A THIN LAYER TO THE AFFECTED AREA(S) groin BY TOPICAL ROUTE 2 TIMES PER DAY 2023 active Not Available Not Available Not Avai lable ibuprofen 600 mg tablet 06/30 completed Not Available Not Available Not Available levofloxa ronny 500 mg tablet 11/04 completed Not Available Not Available Not Available methylpre dnisolone 4 mg tablets in a dose pack TAKE 6 TABLETS BY MOUTH ON DAY 1, THEN TAKE 5 TABLETS ON DAY 2, THEN TAKE 4 TABLETS ON DAY 3, THEN TAKE 3 TABLETS ON DAY 4, THEN TAKE 2 TABLETS ON DAY 5, THEN TAKE 1 TABLET ON DAY 6. TAKE ALL DOSES WITH FOOD. 04/23 completed Not Available Not Available Not Available Zoloft 100 mg tablet take 1 tablet (100 mg) by oral route once daily 12/27 completed Zoloft 100 mg oral tablet;P rescribe Status: Prescrib ed on: 11/03/19 14 4:22PM;D iscontin ued Status: Disconti nued on: 12/28/19 15 10:26AM; User: [email or web address]; Pharmacy Verified : 11/03/19 14 4:22PM Not Available Not Available Not Available cefdinir 300 mg capsule 03/22 completed Not Available Not Available Not Available fluoxetin e 20 mg capsule Disconti nue 04/01 completed Not Available Not Available Not Available fluticaso ne propionat e 50 mcg/actua tion nasal spray,suze pension 1 SPRAY IN EACH NOSTRIL TWICE DAILY 04/23 completed Not Available Not Available Not Available doxycycli ne hyclate 100 mg tablet take 1 tablet (100 mg) by oral route every 12 hours for 14 days 11/03 completed doxycycl ine hyclate 100 mg oral tablet;P rescribe Status: Prescrib ed on: 03/02/20 13 10:46AM; Disconti nued Status: Disconti nued on: 11/03/19 14 3:25PM;U ser: [email or web address]; Est. Completi on: 03/16/20 13;Pharm acyVerif ied: 03/02/20 13 10:46AM Not Available Not Available Not Available Lodrane 6 mg-45 mg tablet,ex tended release 09/13 completed Lodrane 6-45 mg oral tablet extended release 12 hr;Recor ded Status: Recorded on: 07/17/20 09 11:14AM; Disconti nued Status: Disconti nued on: 09/13/19 11 2:30PM;U ser: [email or web address] Not Available Not Available Not Available escitalop frances 10 mg tablet Take by oral route for 30 days. active Not Available Not Available No t Available Premarin 0.625 mg/gram vaginal cream INSERT ONE (1) APPLICAT ORFUL TWICE A WEEK BY VAGINAL ROUTE. 06/30 completed Not Available Not Available Not Available bupropion HCl XL 300 mg 24 hr tablet, extended release 1 qd active Not Available Not Available Not Available bupropion HCl XL 150 mg 24 hr tablet, extended release TAKE 1 TABLET BY MOUTH ONCE DAILY 06/30 completed Not Available Not Available Not Available Seasonale contracep tive 0.15 mg-30 mcg (91) tablets,3 month dose pack take 1 tablet by oral route once daily 11/23 completed Seasonal e contrace ptive 0.15-30 mg-mcg oral tablets, dose pack,3 month;co mment: unable to r/f d/t being obsolete ; blank script put in..tb;R ecorded Status: Recorded on: 10/10/19 12 5:07PM;D iscontin ued Status: Disconti nued on: 11/24/19 13 4:33PM;U ser: [email or web address]; Printed: 11/24/19 13 Not Available Not Available Not Available cyanocoba raúl (vitamin B-12) one tablet daily active Not Available Not Available No t Available calcium 2008 active Calcium 600mg;Re corded Status: Recorded on: 07/17/20 09 11:14AM; User: rey Bravo on: - (-5) Not Available Not Available Not Available Biaxin 07/17 completed Biaxin Oral;Rec orded Status: Recorded on: 08/22/20 08 10:42AM; Disconti nued Status: Disconti nued on: 07/17/20 09 11:14AM; User: [email or web address] Not Available Not Available Not Available multivita min 2008 active Multivit larsen;Rec orded Status: Recorded on: 07/17/20 09 11:14AM; User: rey Garciati on: - (-5) Not Available Not Available Not Available Seasoniqu e 0.15 mg-30 mcg (84)/10 mcg(7) tablets,3 month dose pack take 1 tablet by oral route once daily 12/27 completed Seasoniq ue 0.15 mg-30 mcg (84)/10 mcg (7) oral tablets, dose pack,3 month;Pr escribe Status: Prescrib ed on: 11/03/19 14 4:22PM;D iscontin ued Status: Disconti nued on: 12/28/19 15 10:26AM; User: [email or web address]; Pharmacy Verified : 11/03/19 14 4:22PM Not Available Not Available Not Available levocetir izine 5 mg tablet TAKE 1 TABLET BY MOUTH DAILY 04/23 completed Not Available Not Available Not Available GaviLyte- G 236 gram-22.7 4 gram-6.74 gram-5.86 gram oral solution 06/30 completed Not Available Not Available Not Available Zyrtec 10 mg capsule take 1 capsule by oral route daily as needed 01/21 completed Zyrtec 10 mg oral capsule; Recorded Status: Recorded on: 11/03/19 14 3:25PM;U ser: [email or web address] Not Available Not Available Not Available Lagevrio 200 mg capsule (EUA) TAKE 4 CAPSULES BY MOUTH EVERY 12 HOURS FOR 5 DAYS 06/30 completed Not Available Not Available Not Available Vitals Date Recorded Body weight Body mass index (BMI) Body height Heart rate Oxygen saturation Oxygen saturation in Arterial blood by Pulse oximetry Systolic blood pressure Diastolic blood pressure Provider Name and Address Organization Details Last Updated DateTime 1 87127.0 3 g 30.4 kg/m2 175.26 cm 75 /min 98 % 98 % 122 mm[Hg] 72 mm[Hg] Merlyn Mejias [place] - [facility] 1 16:52:42 Date Recorded Body height Body mass index (BMI) Body weight Systolic blood pressure Diastolic blood pressure Provider Name and Address Organization Details Last Updated DateTime 04/08/2024 175.26 cm 30.5 kg/m2 67216.9 g 122 mm[Hg] 70 mm[Hg] Lupe Orellana [place] - [facility] 4 15:53:05 Date Recorded Body weight Body mass index (BMI) Body height Heart rate Oxygen saturation Oxygen saturation in Arterial blood by Pulse oximetry Systolic blood pressure Diastolic blood pressure Provider Name and Address Organization Details Last Updated DateTime 2 45482.8 1 g 30.9 kg/m2 175.26 cm 80 /min 99 % 99 % 138 mm[Hg] 80 mm[Hg] Merlyn Mejias [place] - [facility] 2 11:02:08 Date Recorded Body weight Body mass index (BMI) Body height Systolic blood pressure Diastolic blood pressure Provider Name and Address Organization Details Last Updated DateTime 06/30/2023 53216.99 g 31.2 kg/m2 175.26 cm 124 mm[Hg] 72 mm[Hg] Vashti Mac [place] - [facility] 3 14:41:04 Date Recorded Body height Body mass index (BMI) Body weight Systolic blood pressure Diastolic blood pressure Provider Name and Address Organization Details Last Updated DateTime 08/30/2024 175.26 cm 30.1 kg/m2 53318.84 g 126 mm[Hg] 78 mm[Hg] Lupe Anderson [place] - [facility] 4 10:57:03 Social History Question Answer Notes LastModified by Organizat ion Details LastModified Time Tobacco Smoking Status Never Smoker Ernesto Barrientos RN [address], [place], [address] [place] - [facility] 01/21/2017 14:57:03 Do You Have An Advance Directive? No Information not available 01/21/2017 Are You Blind Or Do You Have Difficulty Seeing? No Information not available 01/21/2017 Is Blood Transfusion Acceptable In An Emergency? Yes Information not available 01/21/2017 What Is Your Level Of Caffeine Consumption? Occasional Information not available 01/21/2017 Are You Deaf Or Do You Have Serious Difficulty Hearing? No Information not available 01/21/2017 What Type Of Diet Are You Following? REGULAR Information not available 04/02/2021 Live Alone Or With Others? With Others Information not available 01/21/2017 What Was The Date Of Your Most Recent Tobacco Screening? 04/08/2024 [email or web address] Information not available 04/08/2024 How Many Children Do You Have? 1 Information not available 01/21/2017 Performs Monthly Self-breast Exam? Yes Information no t available 01/21/2017 What Is Your Relationship Status? Information not available 01/21/2017 Seat Belts Used Routinely Yes Information not available 01/21/2017 Are You Sexually Active? Yes Information not available 08/30/2024 Do You Use Sunscreen Routinely? Yes Information not available 01/21/2017 Has Tobacco Cessation Counseling Been Provided? No Information not available 01/21/2017 Do You Have Difficulty Walking Or Climbing Stairs? No Information not available 01/21/2017 Sex: Female Functional Status Question Answer Note LastModified by Organizat ion Details LastModified Time Do you use any illicit or recreational drugs? No Information not available 06/30/2023 Do you or have you ever used any other forms of tobacco or nicotine? No Information not available 04/02/2021 What is your level of alcohol consumption? None Information not available 01/21/2017 Are you currently employed? Yes Information not available 04/23/2022 Do you have transportation difficulties? No Information not available 08/30/2024 Are you able to walk? YESWOREST Information not available 08/30/2024 Do you have difficulty doing errands alone? No Information not available 01/21/2017 Are you able to care for yourself? 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 No Information not available 01/21/2017 What is your exercise level? None Information not available 04/02/2021 Mental Status Question Answer Note LastModified by Organization D etails LastModified Time Do you have difficulty concentrating, remembering or making decisions? No Information no t available 01/21/2017 Family History Relationship Description Onset Age of this Age Resolved Age Notes LastModified by Organization Details LastModified Time Mother Cardiac arrhythmia cdicken Not available 01/21 09:26:02 Mother Rheumatoid arthritis cdicken Not available 2016 09:26:19 Mother Basal cell carcinoma of skin cdicken Not available 2016 09:26:30 Maternal Aunt Diabetes mellitus cdicken Not available 2016 09:26:40 Maternal Grandmother Malignant tumor of oral cavity cdicken Not available 01/06 09:26:55 Maternal Grandmother Myocardial infarction cdicken Not available 01/21 09:27:06 Paternal Grandmother Cerebrovascu lar accident cdicken Not available 09:27:16 Medical History No medical history recorded. Gynecological History Statement/Question Response Last Annual Exam/Provider 08/30/24 LLS Abnormal Pap Y If Post Menopausal, Age at Menopause 53 Date of Last Colonoscopy 03/27/2023 Date of Last Mammogram 08/04/2023 Most Recent Bone Density 08/04/2023 Sexually Active? Y Menses Monthly N Colposcopy 08/13/2012 Date of Last Pap Smear 06/30/2023 Current Control Method Partner Vas ectomy Hormone Replacement Therapy Yes Obstetrics History GPAL:G 1 P 1 0 0 1 Type Value Full Term 1 Living 1 Total 1 Immunizations Vaccine Type Date Status Note Provider Nam e and Address Organization Details Recorded Time Tdap 4 completed Lupe Figgins null, [place] - [facility] 08/30/2024 08:46:43 Influenza, split virus, quadrivalent, PF 3 completed Lupe Figgins null, [place] - [facility] 08/30/2024 08:46:43 Influenza, split virus, quadrivalent, PF 4 completed Lupe Figgins null, [place] - [facility] 08/30/2024 10:52:08 Tdap 7 completed Not Available [facility] 09/25/2019 03:54:30 influenza, unspecified formulation 8 completed Not Available [facility] 10/09/2019 02:21:43 COVID-19, mRNA, LNP-S, PF, 100 mcg/0.5mL dose or 50 mcg/0.25mL dose 1 completed Lupe Orellana null, [place] - [facility] 04/08/2024 15:50:46 COVID-19, mRNA, LNP-S, PF, 100 mcg/0.5mL dose or 50 mcg/0.25mL dose 1 completed Lupe Orellana null, [place] - [facility] 04/08/2024 15:50:46 Influenza, split virus, quadrivalent, preservative 1 completed Dana Maxwell MD [address], [place], [address], [place] - [facility] 04/23/2022 11:17:50 zoster recombinant 3 completed Lupe Orellana null, [place] - [facility] 04/08/2024 15:50:46 Influenza, split virus, quadrivalent, PF 9 completed Lupe Orellana null, [place] - [facility] 04/08/2024 15:50:46 Influenza, split virus, quadrivalent, PF 0 completed Lupe Orellana null, [place] - [facility] 04/08/2024 15:50:46 Past Encounters Encounter ID Performer Location Encounter Start Date Encounter Closed Date Diagnosis/Indication Diagnosis SNOMED-CT Code Diagnosis ICD10 Code Diagnosis Note [id number] [facility] [address] [place] [address] 09/19/2009 00:00:00 [id number] [facility] [address] [place] [address] 10/22/2012 00:00:00 [id number] [facility] [address] [place] [address] 02/03/2013 00:00:00 [id number] [facility] [address] [place] [address] 09/13/2010 00:00:00 [id number] [facility] [address] [place] [address] 08/22/2008 00:00:00 [id number] [facility] [address] [place] [address] 03/18/2011 00:00:00 [id number] [facility] [address] [place] [address] 07/17/2009 00:00:00 [id number] [facility] [address] [place] [address] 10/10/2011 00:00:00 [id number] [facility] [address] [place] [address] 06/15/2008 00:00:00 [id number] [facility] [address] [place] [address] 05/20/2012 00:00:00 [id number] [facility] [address] [place] [address] 02/26/2006 00:00:00 [id number] [facility] [address] [place] [address] 08/13/2012 00:00:00 [id number] [facility] [address] [place] [address] 08/20/2006 00:00:00 [id number] [facility] [address] [place] [address] 10/22/2012 00:00:00 [id number] [facility] [address] [place] [address] 03/17/2007 00:00:00 [id number] [facility] [address] [place] [address] 02/22/2013 00:00:00 [id number] [facility] [address] [place] [address] 11/03/2013 00:00:00 [id number] [facility] [address] [place] [address] 12/27/2014 00:00:00 [id number] [facility] [address] [place] [address] 01/16/2015 00:00:00 [id number] [facility] [address] [place] [address] 01/18/2016 00:00:00 [id number] [facility] [address] [place] [address] 03/19/2016 00:00:00 [id number] MD Eloy Hurst [employer] [address] [facility] [place] [address] 01/21/2017 14:43:55 01/21/2017 16:00:49 Gynecologic examination 35512532 Z01.419 Depression screening 171 885176 Z13.89 Hypertensi on screening 446297412 Z13.6 Patient currently is within goal of less than 140/90. We will rescreen at annual visit, sooner if needed Exercises education, guidance, and counseling 166033249 Z71.89 Advise 30 minutes 3 times a week at a minimum of purposeful exercise. Patient is currently meeting this goal. Body mass index 25-29 - overweight 958496129 Z68.27 Screening for malignant neoplasm of breast 983848936 Z12.31 Patient aware of due date for next Mammogram as indicated below. [facility] Appt [facility]She will be notified by facility of result after completion . Advise yearly Clinical Breast exam with Annual exam. Hormone re placement therapy 823874838 Z79.890 Interested in trial of weaning HRT. Advised to see how she does in the next several months with fluoxetine before decreasing HRT Menopausal syndrome 1237 67681 N95.9 Active or passive immunization 497031763 Z23 Anxiety 73910206 F41.9 Previous unsuccessf ul trial of Zoloft. Discussed alternativ e medication s. Patient willing to try fluoxetine . Computer indicates this had been prescribed 2009 the patient has no memory of trial of this. Potential risks benefits side effects were reviewed. Will have her come back for short-term follow-up Candidiasis of skin 4988 3006 B37.2 Posterior to rectum, no vulvar involvemen t [id number] Dana Maxwell MD [place] [employer] [address] [facility] [place] [address] 02/24/2018 12:35:59 02/24/2018 13:32:06 Gynecologic examination 07243348 Z01.419 Cervical cancer screening not due this year, see HPI Depression screening 171 413334 Z13.89 Hypertensi on screening 104491248 Z13.6 Patient currently is within goal of less than 140/90. We will rescreen at annual visit, sooner if needed Exercises education, guidance, and counseling 465297783 Z71.82 Advise 30 minutes 3 times a week at a minimum of purposeful exercise. Patient is not currently meeting this goal. Body mass index 25-29 - overweight 991101755 Z68.29 Screening for malignant neoplasm of breast 101365122 Z12.31 Patient aware of due date for next Mammogram as indicated below. She will be notified by facility of result after completion . Advise yearly Clinical Breast exam with Annual exam. Hormone re placement therapy 280501712 Z79.890 call if desires to restart hrt, advised if vitamin labs are normal and still having symptoms may consider going back on hrt Cobalamin deficiency 190 794295 E53.8 Labs pending with PCP today Insomnia 321879525 G47.0 0 Fatigue 95945660 R53.83 [id number] MD Eloy Hurst [employer] [address] [place] [address] [place] [address] 04/01/2017 11:24:26 04/01/2017 13:17:09 Hormone replacement therapy 084789002 Z79.890 Interested in trial of weaning HRT.. Advise decrease to every other day Estratest half-stren gth and Provera as tolerated Anxiety 33954699 F41.9 Intolerant of fluoxetine due to sedation and only minimal improvemen t of anxiety. Previous intoleranc e of Zoloft similar but worse side effects. Review of records show this is been a long-term issue not specifical ly related to conversion from control pills to HRT. Prefers trying to go down off HRT before trying another SSRI. Advised this may actually worsen symptoms but she wants to give it a try and find out [id number] MD Eloy Hurst [employer] [address] [place] [address] [place] [address] 11/04/2018 11:15:37 11/04/2018 12:01:54 Hormone replacement therapy 111815444 Z79.890 Menopausal syndrome 1237 92609 N95.9 Partial suppressio n of menopausal syndrome on return to HRT with 0.5 mg estradiol QD dosing. After reviewing options to help with her residual anxiety and insomnia, she prefers plan of increasing estradiol back to 1 mg dosing. Discussed potential HRT risks associated with dosing and duration as well as benefits. Reinforced correct Sig for Provera should be daily Provera 2.5. Amended prescripti ons sent to pharmacy discussed availabili ty of over-the-c ounter sleep aid such as Benadryl or versus other prescripti on antianxiet y medication s [id number] MD Eloy Hurst [employer] [address] [place] [address] [place] [address] 03/03/2019 14:26:07 03/03/2019 15:47:40 Gynecologic examination 44468379 Z01.419 Depression screening 171 909071 Z13.89 Hypertensi on screening 797561263 Z13.6 Patient currently is within goal of less than 140/90. We will rescreen at annual visit, sooner if needed Exercises education, guidance, and counseling 825049745 Z71.82 Advise 30 minutes 3 times a week at a minimum of purposeful exercise. Patient is not currently meeting this goal. Mixed anxi ety and depressive disorder 478960590 F41.8 Mild symptoms, pre-existi ng menopause and not adequately improved with HRT alone or prior SSRIs. Trial Wellbutrin with these. Offered additional counseling with our staff, declines currently Menopausal syndrome 1237 83064 N95.9 Vasomotor, , Sleep, vaginal and energy symptoms have all improved significan tly with 1 mg / 2.5 mg HRT and no bleeding. No contraindi cations to ongoing use. Had not been adequately suppressed with 0.5 mg trial last year. Desires to continue ongoing dosing. No significan t improvemen t in anxiety and intermitte nt depressive days Screening for malignant neoplasm of cervix 083652587 Z12.4 Screening mammography 24 674245 Z12.31 Menopause 297225642 Z78. 0 Hyperlipid emia screening 976866353 Z13.220 Plans to do these at hospital with imaging as above [id number] MD Eloy Hurst [employer] [address] [facility] [place] [address] 09/14/2019 09:15:20 09/14/2019 10:42:55 Postmenopausal bleeding 36667242 N95.0 Unexplaine d bleeding over last 3 weeks, now 5 years postmenopa usal, on combined HRT without break in use. Prior history of some abnormal bleeding during her late reproducti ve years in early perimenopa usal phase with normal testing x3 over the last 15 years. No gross changes in vault or cervix or on unenhanced ultrasound . Up-to-date cervical cytology is negative. Agreed to endometria l biopsy that is completed today. Normal unenhanced ultrasound today. Advised return for sonohyster ogram to complete current work-up. Discussed if symptoms persist option of hysterosco pic D&C and even discussed option of hysterecto my if they persist beyond this. Continue HRT at current dose for now Menopausal syndrome 1237 78323 N95.9 Vasomotor, , Sleep, vaginal and energy symptoms have all improved significan tly with 1 mg / 2.5 mg HRT and no bleeding. No contraindi cations to ongoing use. Had not been adequately suppressed with 0.5 mg trial last year. Desires to continue ongoing dosing. No significan t improvemen t in anxiety and intermitte nt depressive days Hormone re placement therapy 796869299 Z79.890 Stable dose combined HRT. Continue dosing for now [id number] MD Eloy Hurst [employer] [address] [place] [address] [place] [address] 10/22/2019 12:13:00 10/22/2019 13:52:00 Postmenopausal bleeding 18510450 N95.0 continue estradiol 1mg, increase to 5mg provera daily. Discussed options of hysterecto my will call if desires Menopausal syndrome 1237 81912 N95.9 Vasomotor, , Sleep, vaginal and energy symptoms have all improved significan tly with 1 mg / 2.5 mg HRT and no bleeding. No contraindi cations to ongoing use. Had not been adequately suppressed with 0.5 mg trial last year. Desires to continue ongoing dosing. No significan t improvemen t in anxiety and intermitte nt depressive days Hormone re placement therapy 868782087 Z79.890 Continue 1 mg estradiol, increase progestin to 5 mg as trial with her bleeding [id number] MD Eloy Hurst [employer] [address] [place] [address] [place] [address] 03/22/2020 14:15:18 03/22/2020 15:53:07 Gynecologic examination 46978799 Z01.419 Depression screening 171 725663 Z13.89 Currently treated mild depressive changes followed with PCP Hypertensi on screening 966960690 Z13.6 Patient currently is within goal of less than 140/90. We will rescreen at annual visit, sooner if needed Exercises education, guidance, and counseling 000665946 Z71.82 Advise 30 minutes 3 times a week at a minimum of purposeful exercise. Patient is currently meeting this goal. Screening for malignant neoplasm of breast 303823807 Z12.31 Patient aware of due date for next Mammogram as indicated below. Has appointmen t in April she will be notified by facility of result after completion . Advise yearly Clinical Breast exam with Annual exam. Menopausal syndrome [id number] N95.9 Adequate suppressio n of vasomotor and sleep and concentrat ion symptoms with current dosing, had not been adequately controlled either completely off HRT or on trial of 1 mg estrogen. 5 mg dosing of medroxypro gesterone used given postmenopa usal bleeding history Body mass index 30+ - obesity [id number] Z68.31 Microscopic hematuria 19 1527228 R31.21 notes blood after wiping, under if urethra or vaginal.Ca th UA today - trace blood. Will send for microscopi c and culture, further work work-up/tr eatment based on these results Postmenopa usal bleeding 42958431 N95.0 History of charmaine menopausal bleeding September, negative SHG and biopsy 10/2019. Most recent light post void blood with wiping may represent either uterovagin al bleeding versus urinary. Urinary work-up as below. Advised to call if any further charmaine bleeding -might require full hysterosco py D&C but still likely idiopathic and/or due to HRT. Screening for malignant neoplasm of cervix [id number] Z12.4 Sent earlier than standard screening due to bleeding history Mixed anxi ety and depressive disorder 560651520 F41.8 Mild symptoms, pre-existi ng menopause and not adequately improved with HRT alone or prior SSRIs. I had tried Wellbutrin with her 02 24 and she had not felt adequate improvemen t however when retried February 25 per PCP currently feeling a little better. Encouraged her to continue this along with HRT Hormone re placement therapy 115558647 Z79.890 Continue 1 mg estradiol, we increased progestin to 5 mg as trial with her bleeding October 2019, tolerating well. Patient aware of risk and benefits are of longer than average HRT use but at this point intolerant of trials of discontinu ation or weaning and reasonable to continue as she is seeing benefit from use and no contraindi cations [id number] MD Eloy Hurst [employer] [address] [facility] [place]Y [place] [address] 04/02/2021 15:54:02 04/02/2021 17:34:19 Gynecologic examination 56336887 Z01.419 Cervical cancer screening not due this year, see HPI Depression screening 171 Z13.89 Currently treated mild depressive changes followed with PCP Hypertensi on screening 759145032 Z13.6 Patient currently is within goal of less than 140/90. We will rescreen at annual visit, sooner if needed Exercises education, guidance, and counseling 812843375 Z71.82 Advise 30 minutes 3 times a week at a minimum of purposeful exercise. Patient is not currently meeting this goal. Screening for malignant neoplasm of breast 156799839 Z12.31 Patient aware of due date for next Mammogram as indicated below. July she will be notified by facility of result after completion . Advise yearly Clinical Breast exam with Annual exam. Hormone re placement therapy 140629629 Z79.890 decrease to estradiol 0.5 and continue provera 5mg, wean as tolerated previously had not tolerated weaning trial 2 years ago but wanting to try again Vaccination needed 52210 07395 14321 Z23 Rx shingles to [facility]-we will consider setting up when she comes back for July mammogram Hypothyroidism 70062340 E03.9 Minimal hypothyroi dism, noted 8 19. Synthroid 25 mcg started then. Refills/rosas rveillance have been taken over since then per PCP Body mass index 30+ - obesity 503615242 Z68.30 [id number] MD Eloy Hurst [employer] [address] [place] [address] [place] [address] 04/23/2022 10:51:56 04/23/2022 11:56:09 Gynecologic examination 51959772 Z01.419 Cervical cancer screening not due this year, see HPI Depression screening 171 Z13.89 Currently treated mild depressive changes followed with PCP Hypertensi on screening 466740311 Z13.6 Patient currently iswithin goal of less than 140/90. We will rescreen at annual visit, sooner if needed Exercises education, guidance, and counseling 655877647 Z71.82 Advise 30 minutes 3 times a week at a minimum of purposeful exercise. Patient is not currently meeting this goal. Body mass index 30+ - obesity 647698229 Z68.30 Obesity 835424304 E66.9 Screening for malignant neoplasm of colon 604629376 Z12.11 Screening for malignant neoplasm of breast 685477455 Z12.31 Patient aware of due date for next Mammogram as indicated below. She will be notified by facility of result after completion . Advise yearly Clinical Breast exam with Annual exam. Female str ess incontinence 59451542 N39.3 Mild symptoms only when full. Reviewed pelvic floor muscle exercises, will add Premarin cream check baseline cultures. Call if symptoms worsening Hormone re placement therapy 033549318 Z79.890 continue HRT, wean as tolerated. Reviewed risk and benefits that are dose and duration dependent [id number] MD Eloy Hurst [employer] [address] [facility] [place] [address] 06/30/2023 14:21:57 06/30/2023 15:31:02 Gynecologic examination 29297285 Z01.419 Depression screening 171 486201 Z13.31 Currently treated mild depressive changes followed with PCP Hypertensi on screening 843676036 Z13.6 Patient currently iswithin goal of less than 140/90. We will rescreen at annual visit, sooner if needed Exercises education, guidance, and counseling 428921782 Z71.82 Advise 30 minutes 3 times a week at a minimum of purposeful exercise. Patient is not currently meeting this goal. Screening for malignant neoplasm of cervix 986099903 Z12.4 Screening for malignant neoplasm of breast 523655070 Z12.31 Patient aware of due date for next Mammogram as indicated below. She will be notified by facility of result after completion . Advise yearly Clinical Breast exam with Annual exam. Screening for osteoporosis 918478231 Z13.820 Z78.0 Hormone re placement therapy 982207602 Z79.890 She desires trial of complete cessation of HRT. Currently on 4 times a week 0.5/5 mg dosing. Reviewed her current concern about anxiety may or may not be due to hypoestrog enism although she did not really feel like they worsened with decreased last year. She wants to try coming off completely . Advise d/c HRT after 2x/week for 1month has enough at home to wean.call if sx return. Anxiety 24756261 F41.9 Worsening anxiety in the last several years, she feels this is more so than depression . This is despite bupropion 300. Encouraged to talk to PCP to see if additional psychoacti ve medication or therapy may be helpful. Discussed this is not a classic hypoestrog enic symptom but in her case if she determines that she feels worse without even low-dose HRT we can continue to use it for this indication Female str ess incontinence 36212689 N39.3 Mild symptoms. Nocturia 759746286 R35.1 Nocturia x1, seems to be a trigger for her waking and poor sleep return. Advise limit liquids after supper. Body mass index 30+ - obesity 205529822 Z68.30 [id number] Staci Freeman APRN [place] [employer] [address] [place] [address] [place] [address] 04/08/2024 15:30:18 04/08/2024 16:15:47 Candidiasis of vagina 13082578 B37.31 [id number] Dana Maxwell MD [place] [employer] [address] [place] [address] [place] [id number] 08/30/2024 10:46:51 08/30/2024 11:36:23 Gynecologic examination 55321539 Z01.419 Cervical cancer screening not due this year, see HPI Depression screening 171 069483 Z13.31 Currently treated mild depressive changes followed with PCP Hypertensi on screening 792597549 Z13.6 Patient currently iswithin goal of less than 140/90. Exercises education, guidance, and counseling 276667145 Z71.82 Advise 30 minutes 3 times a week at a minimum of purposeful exercise. Patient is not currently meeting this goal. Menopausal syndrome 1237 21813 N95.9 Previous symptoms had been vasomotor, sleep and concentrat ion symptoms at time of menopause. The symptoms had returned with previous trial of complete cessation. She is now down to twice weekly use of low-dose HRT without return of symptoms. Hormone re placement therapy 302686195 Z79.890 She desires trial of complete cessation of HRT. Currently on 2 times a week 0.5/5 mg dosing after gradual weaning over the last year. Has been on current dose for at least the last 6 months without symptoms. Okay to discontinu e completely but will keep prescripti ons available if symptoms recur again as they had with previous trial of complete discontinu ation.. Reviewed option for vaginal estrogen if she develops any vaginal symptoms or dyspareuni a with complete discontinu ation of systemic therapy Screening for malignant neoplasm of breast 170898861 Z12.31 Patient aware of due date for next Mammogram as indicated below. She will be notified by facility of result after completion . Advise yearly Clinical Breast exam with Annual exam. Body mass index 30+ - obesity 034150897 Z68.30 Obesity 228101154 E66.9 Patient wy dical record not available 220955317 Z76.89 Urgent myra jose david to urinate 43097872 R39.15 Intermitte nt symptoms without actual loss. Does not feel symptoms bad enough for treatment but will check baseline culture Candidiasis of skin 4988 3006 B37.2 to groin area bilaterall y. Partial improvemen t with clotrimazo le/betamet hasone and Diflucan use since April. Will retreat with Diflucan and adjust the topical treatment to Terazol and clobetasol given refractory to clotrimazo le/betamet hasone. Culture sent. If not seeing complete resolution after 10 days of consistent twice daily use call for follow-up. Might consider skin biopsy if not improving Health Concerns Section Related Observation LastModified by Organization Detai ls LastModified Time None Recorded Concern Status LastModified by Organization Details LastModified Time None Recorded Advance Directives Directive N: Payers Insurance Date Sequence Insurance Name Policy Number Policy [employer] Covered Member ID [employer] Member ID Guarantor Name 08/30/2024 1 [employer] [id number] Zachariah Muhammad [id number] Zachariah Muhammad 08/30/2024 1 [employer] [id number] Fili Muhammad [id number] Zachariah Muhammad Notes Date Note Type Note Provider Name and Address Organization Details Recorded Time 1 text/html Patient is a 61# __ year old who presents today as an established patient# an established a new a referred an established prior patient, but new for billing purposes (as it is greater than three years since her last [facility] visit) for an annual exam. Her previous annual exam was 03/22/2020# _/_/_ no past appointments with myself. She is naturally menopausal. She has been menopausal since age 53# N. She is currently using estradiol/provera.# has never used HRT. has previously used HRT, until ___. is currently using . She admits having the following menopausal related symptoms that concern her None on HRT# hot flashes/night sweats vaginal dryness change in sleep pattern poor libido diffuculty concerntrating skin changes fatigue mood changes prolapse and she denies Vasomotor vaginal dryness.# hot flashes/night sweats vaginal dryness change in sleep pattern poor libido diffuculty concerntrating skin changes fatigue mood changes prolapse. She is still occasionally# still no longer currentlysexually activewith the same partner as last visit. Other than needing a preventive exam, is also being followed for menopausal syndrome.# she denies other problems or concerns is complaining of ____ is having problems with ____ is also being followed for noted on exam to have noted on ROS to have ____ having questions about ____and this is addressed also today She is not currently taking any medications prescribed by our practice or needing refills: Stopped Estradil and provera 7 21 to see how she will do without. CHRONIC DISEASE AND BP ASSESSMENT : In addition to the above reviewed [employer] issues, she does have a history of chronic disease(s), noted in PMH, for which she is advised to follow up regularly with her PCP (and/or specialists involved).Significant changes in personal medical history : NoneCurrently prescribed medications reviewed :reconciled and patient states compliance Today's BP reading was within normal limits with goal of 140/90 She has not previously been diagnosed with hypertension. She is not currently using antihypertensive medication. BMI/EXERCISE and DIET COUNSELLING:Her current BMI is 30# . She is advised that her BMI is overweight . Her weight is documented as decreasing over the last year.Diet and physical activities addressed today included patient's activity level.Patient's current exercise status : NoneShe states she does not attempt to actively monitor her diet for attempts to lose weight or manage a medical condition.It is recommended that she continue current diet regimen.It is recommended that she begin exercise program, a minimum of walking 5 days a week. TOBACCO and SUBSTANCE ABUSE SCREENING:Patient is not a tobacco user. She denies the use of drugs. She denies the use of alcohol. DEPRESSION SCREENING:Patient completed a PHQ-9 form and scored a 0# . See result on attached form. She She has past experience with depression. She does not need to schedule with [facility] or mental health specialist.She is using a psychoactive prescription currently OTHER SOCIAL HISTORY:She has had significant social history changes or issues this year. Has been diagnosed March 2020 with metastatic renal cancer with lesion appearing on his shoulder requiring large excision and showing diagnosis. He then had left kidney removed in June and has been using biologic IV therapy since then. Had shown improvement and apparent metastatic nodules in his lung during this interval but started to experience side effects from the chemotherapy. 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 Very stressful time for them.# . These include: . IMMUNIZATION STATUS: Her immunization status was addressed today. see specifics on vaccine panel.Influenza : Current?YesTdap: Current?:yes 2016 # Yes No-but given today No - advised and declined today N/AShingles: Current?:Will consider but plans to get with PCP# Yes No-but given today No - advised and declined today N/AGardasil:Current ?:N/APneumovax:Current?:N /APrevnar 13: Current?:N/AOther indicated: :Current ?:Covid: yes SCREENING STATUS:Her most recent screening test are reviewed as documented above. Currently overdue for:none.------ .Recent abnormal screening tests:none.------ . Based on her age and risk factors, she is DUE FOR THE FOLLOWING SCREENS :Pelvic and Breast exam: todayCervical cancer screenin03/22/2020 wnl neg hpv# not needed today but will be due: today no longer indicated due to absence of cervix no longer indicated due to > 65 and has had adequate and negative screening documented . Test(s) indicated when next due 2022# today when next due N/A: Pap with HPV Co-TestCervical Cultures: N/AMammogram : 07/10/2020 nl, yearly# next available- needs to schedule had today baseline due age 42 has scheduled for:___ yearly, due in:____; short term follow due in:---Colonoscopy:06/2012 nl, due 2021# baseline due at 52 Next due in ___ is overdue , counselled and declines to schedule, FIT test is offered as a less effective alternative screen and she declines/accepts is overdue and agree to scheduleDEXA: 04/2019 wnl# N/A, underage baseline due in ___ followup due in: __ has scheduled for____ needs to schedule soonLipids: follow with PCP as advised[place] Ovarian Cancer screening : Patient should return in 1 year for an annual wellness exam and sooner as needed for other problems. Zachariah has had no complaints herself but significant stressors with 's illness as above. She states she would like to try again for weaning of HRT, was not sure she could just stop it all at once were needed to wean. So far to 5 days without the 1 mg dosing she is seen no withdrawal bleed or any vasomotor symptoms yet. When she last tried togo without HRT about 3 years ago she developed symptoms within about 3 to 4 months and was restarted then 0.5 estradiol with Provera but did not have adequate symptom reversal until she got back to full 1 mg dose.She has been on Wellbutrin several years with good mood and anxiety control with this does not plan to stop this. Has seen no bleeding this year. Had had some minor self-limited bleeding with wiping at the 2019 visit and had UA culture then that were negative and Pap/HPV earlier than scheduled for screening that was negative. October 2019 had negative sonohysterogram and endometrial biopsy We had diagnosed hypothyroidism here 8 and initially prescribed Synthroid 25 this has been followed and renewed by her PCP Dana Maxwell MD [facility] [address], [place], [address], [place] [facility] 04/02/2021 23:02:35 2 text/html Patient is a __ 62 year old who presents today as an established a new a referred an established prior patient, but new for billing purposes (as it is greater than three years since her last [facility] visit) an established patient for an annual exam. Her previous annual exam was _/_/_ no past appointments 03/22/2020 with myself. She is naturally menopausal. She has been menopausal since age N 53. She has never used HRT. has previously used HRT, until ___. is currently using . is currently using estradiol/provera. She admits having the following menopausal related symptoms that concern her hot flashes/night sweats vaginal dryness change in sleep pattern poor libido diffuculty concerntrating skin changes fatigue mood changes prolapse None on HRT and she denies hot flashes/night sweats vaginal dryness change in sleep pattern poor libido diffuculty concerntrating skin changes fatigue mood changes prolapse Vasomoto r vaginal dryness.. She is still no longer currently still occasionallysexually activewith the same partner as last visit. Other than needing a preventive exam, she denies other problems or concerns is complaining of ____ is having problems with ____ is also being followed for noted on exam to have noted on ROS to have ____ having questions about ____ is also being followed for menopausal syndrome.and this is addressed also today She is currently taking any medications prescribed by our practice or needing refills: Estrogen/provera CHRONIC DISEASE AND BP ASSESSMENT : In addition to the above reviewed [employer] issues, she does have a history of chronic disease(s), noted in PMH, for which she is advised to follow up regularly with her PCP (and/or specialists involved).Significant changes in personal medical history : NoneCurrently prescribed medications reviewed :reconciled and patient states compliance Today's BP reading was within normal limits with goal of 140/90 She has not previously been diagnosed with hypertension. She is not currently using antihypertensive medication. BMI/EXERCISE and DIET COUNSELLING:Her current BMI is 30. She is advised that her BMI is overweight . Her weight is documented as unchanged over the last year.Diet and physical activities addressed today included patient's activity level.patients current exercise status : NoneShe states she does not attempt to actively monitor her diet for attempts to lose weight or manage a medical condition.It is recommended that she continue current diet regimen.It is recommended that she increase current exercise status TOBACCO and SUBSTANCE ABUSE SCREENING:Patient is not a tobacco user. She denies the use of drugs. She denies the use of alcohol. DEPRESSION SCREENING:Patient completed a PHQ-9 form and scored a 1. See result on attached form. She She has past experience with depression. She does not need to schedule with [facility] or mental health specialist.She is using a psychoactive prescription currently OTHER SOCIAL HISTORY:She has not had significant social history changes or issues this year. These include: . . IMMUNIZATION STATUS: Her immunization status was addressed today. see specifics on vaccine panel.Influenza : Current?YesTdap: Current?:Yes No-but given today No - advised and declined today N/A yes 2017Shingles: Current?:Yes No-but given today No - advised and declined today N/A Will consider but plans to get with PCPGardasil:Current?:N/AP neumovax:Current?:N/APrev pilo 13: Current?:N/AOther indicated: :Current ?:Covid: yes rx given for shirngrix 03/2021- not adminsitered as of 04/2022/ plans at pcp/lls 04/23/22SCREENING STATUS:Her most recent screening test are reviewed as documented above. Currently overdue for:none.------ .Recent abnormal screening tests:none.------ . Based on her age and risk factors, she is DUE FOR THE FOLLOWING SCREENS :Pelvic and Breast exam: todayCervical cancer screening: not needed today but will be due: today no longer indicated due to absence of cervix no longer indicated due to > 65 and has had adequate and negative screening documented 03/22/2020 wnl neg hpv . Test(s) indicated today when next due N/A when next due 2022: Pap with HPV Co-TestCervical Cultures: N/AMammogram : next available- needs to schedule had today baseline due age 42 has scheduled for:___ yearly, due in:____; short term follow due in:--- 07/23/21Colonoscop y:baseline due at 52 Next due in ___ is overdue , counselled and declines to schedule, FIT test is offered as a less effective alternative screen and she declines/accepts is overdue and agree to schedule 06/2012 nl, due 2DEXA: N/A, underage baseline due in ___ followup due in: __ has scheduled for____ needs to schedule soon 04/2019 wnl due 2023Lipids: follow with PCP as advised[place] Ovarian Cancer screening :advised of program, information given and can pursue if interested Patient should return in 1 year for an annual wellness exam and sooner as needed for other problems. still on hrt- no attempted dc this yr but didnt tolerate prior weans with HF, no hf on current dose. still SA with no sx rare frances partiuclary if very full i seen in [place] for renal cell cancer stage 4 diagnosed November 2019, doing ok, having treatments x 2 yr. , had second surgery for axillary LN was negative.. 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 She is still working full-time Dana Maxwell MD [address], [place], [address], [place] [facility] 04/23/2022 22:29:41 3 text/html Patient is a __ 63 year old who presents today as an established a new a referred an established prior patient, but new for billing purposes (as it is greater than three years since her last [facility] visit) an established patient for an annual exam. Her previous annual exam was _/_/_ no past appointments 03/22/2020 with myself. She is naturally menopausal. She has been menopausal since age N 53. She has never used HRT. has previously used HRT, until ___. is currently using . is currently using estradiol/provera. She admits having the following menopausal related symptoms that concern her hot flashes/night sweats vaginal dryness change in sleep pattern poor libido diffuculty concerntrating skin changes fatigue mood changes prolapse None on HRT and she denies hot flashes/night sweats vaginal dryness change in sleep pattern poor libido diffuculty concerntrating skin changes fatigue mood changes prolapse Vasomoto r vaginal dryness.. She is still no longer currently still occasionallysexually activewith the same partner as last visit. Other than needing a preventive exam, she denies other problems or concerns is complaining of ____ is having problems with ____ is also being followed for noted on exam to have noted on ROS to have ____ having questions about ____ is also being followed for menopausal syndrome.and this is addressed also today She is currently taking any medications prescribed by our practice or needing refills: Estrogen/provera CHRONIC DISEASE AND BP ASSESSMENT : In addition to the above reviewed [employer] issues, she does have a history of chronic disease(s), noted in PMH, for which she is advised to follow up regularly with her PCP (and/or specialists involved).Significant changes in personal medical history : NoneCurrently prescribed medications reviewed :reconciled and patient states compliance Today's BP reading was within normal limits with goal of 140/90 She has not previously been diagnosed with hypertension. She is not currently using antihypertensive medication. BMI/EXERCISE and DIET COUNSELLING:Her current BMI is 31. She is advised that her BMI is overweight . Her weight is documented as increasing over the last year.Diet and physical activities addressed today included patient's activity level.patients current exercise status : NoneShe states she does not attempt to actively monitor her diet for attempts to lose weight or manage a medical condition.It is recommended that she continue current diet regimen.It is recommended that she increase current exercise status TOBACCO and SUBSTANCE ABUSE SCREENING:Patient is not a tobacco user. She denies the use of drugs. She denies the use of alcohol. DEPRESSION SCREENING:Patient completed a PHQ-9 form and scored a 3. See result on attached form. She She has past experience with depression. She does not need to schedule with Comprehend or mental health specialist.She is using a psychoactive prescription currently OTHER SOCIAL HISTORY:She has not had significant social history changes or issues this year. These include: . She and still work together [employer] IMMUNIZATION STATUS: Her immunization status was addressed today. see specifics on vaccine panel.Influenza : Current?Yes No-but given today No - advised and declined today N/A scheduled next week health deptTdap: Current?:Yes No-but given today No - advised and declined today N/A yes 2017Shingles: Current?:Yes No-but given today No - advised and declined today N/A Will consider but plans to get with PCPGardasil:Current?:N/AP neumovax:Current?:N/APrev pilo 13: Current?:N/AOther indicated: :Current ?:Covid: yes SCREENING STATUS:Her most recent screening test are reviewed as documented above. Currently overdue for:none.------ .Recent abnormal screening tests:none.------ . Based on her age and risk factors, she is DUE FOR THE FOLLOWING SCREENS :Pelvic and Breast exam: todayCervical cancer screening: not needed today but will be due: today no longer indicated due to absence of cervix no longer indicated due to > 65 and has had adequate and negative screening documented 03/22/2020 wnl neg hpv . Test(s) indicated today: Pap with HPV Co-TestCervical Cultures: N/AMammogram : next available- needs to schedule had today baseline due age 42 has scheduled for:___ yearly, due in:____; short term follow due in:--- 07/29/22 nl, yearlyColonoscopy:snehal leonard due at 52 Next due in ___ is overdue , counselled and declines to schedule, FIT test is offered as a less effective alternative screen and she declines/accepts is overdue and agree to schedule 03/27/23 nl, repeat 10 yearsDEXA: N/A, underage baseline due in ___ followup due in: __ has scheduled for____ needs to schedule soon 04/2019 wnl due 2023Lipids: follow with PCP as advised[place] Ovarian Cancer screening :advised of program, information given and can pursue if interested Patient should return in 1 year for an annual wellness exam and sooner as needed for other problems. Also being followed for HRT. In the last year she 0.5/5 mg daily down to 0.5/5 mg 4 times a week. hrt - uses 05. E2 an provera 5 4 morning/week on current dose she is having no hot flashes no vaginal dryness with intercourse, no night sweats. She states for several years she has had problems with anxiety but really does not feel nervous or worried, just anxious. She has hard time focusing, she falls asleep but cannot fall back asleep after she wakes up to void around 3 AM cannot turn off her mind with things to do.. She does not feel like she wakes up due to sweat. She has rare FRANCES if extremely full She states she will have some appropriate worries such as when (recovering from renal cancer) has upcoming test but once she gets good results she does not have ongoing worry.Family doctor has added Wellbutrin up to 3 mg as she really cannot tell a difference. She has a sense that at 1 point this was better when she was on HRT full dose but really did not notice any worsening going from 0.5 mg daily to 0.5 4 times a week. She states she really would like to be off HRT if possible but is just worried. Dana Maxwell MD [address], [place], [address], [place] - [facility] 06/30/2023 21:48:22 4 text/html Zachariah presents today with new onset of rash in panti-line and inner legs. She has also noticed a few new bumps in the mons areas. Zachariah states has used various creams, however, hadn't seen improvement. She has recently been using Nystatin and states there may be very slight improvement. Staci Freeman, SCIENCE MANAGER [address], [place], [address], [place] - [facility] 04/09/2024 13:00:19 4 text/html Patient is a __ 64 year old who presents today as an established a new a referred an established prior patient, but new for billing purposes (as it is greater than three years since her last [facility] visit) an established patient for an annual exam. Her previous annual exam was _/_/_ no past appointments 06/30/2023 with myself. She is naturally menopausal. She has been menopausal since age N 53. She has never used HRT. has previously used HRT, until ___. is currently using . is currently using estradiol/provera. She admits having the following menopausal related symptoms that concern her hot flashes/night sweats vaginal dryness change in sleep pattern poor libido diffuculty concerntrating skin changes fatigue mood changes prolapse None on HRT and she denies hot flashes/night sweats vaginal dryness change in sleep pattern poor libido diffuculty concerntrating skin changes fatigue mood changes prolapse Vasomoto r vaginal dryness.. She is still no longer currently still occasionallysexually activewith the same partner as last visit. Other than needing a preventive exam, she denies other problems or concerns is complaining of ____ is having problems with ____ is also being followed for noted on exam to have noted on ROS to have ____ having questions about ____ is also being followed for menopausal syndrome.and this is addressed also today She is currently taking any medications prescribed by our practice or needing refills: Estrogen/provera CHRONIC DISEASE AND BP ASSESSMENT : In addition to the above reviewed [employer] issues, she does have a history of chronic disease(s), noted in PMH, for which she is advised to follow up regularly with her PCP (and/or specialists involved).Significant changes in personal medical history : NoneCurrently prescribed medications reviewed :reconciled and patient states compliance Today's BP reading was within normal limits with goal of 140/90 She has not previously been diagnosed with hypertension. She is not currently using antihypertensive medication. BMI/EXERCISE and DIET COUNSELLING:Her current BMI is 30. She is advised that her BMI is overweight . Her weight is documented as increasing over the last year.Diet and physical activities addressed today included patient's activity level.patients current exercise status : NoneShe states she does not attempt to actively monitor her diet for attempts to lose weight or manage a medical condition.It is recommended that she continue current diet regimen.It is recommended that she increase current exercise status TOBACCO and SUBSTANCE ABUSE SCREENING:Patient is not a tobacco user. She denies the use of drugs. She denies the use of alcohol. DEPRESSION SCREENING:Patient completed a PHQ-9 form and scored a 0. See result on attached form. She She has past experience with depression. She does not need to schedule with Comprehend or mental health specialist.She is using a psychoactive prescription currently OTHER SOCIAL HISTORY:She has not had significant social history changes or issues this year. These include: . She and still work together [employer]-he has stepped down more as he has reached 67. He has had renal cell cancer, completed 3 treatments and has been cancer free for the last 2 years on repeat scans. 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 IMMUNIZATION STATUS: Her immunization status was addressed today. see specifics on vaccine panel.Influenza : Current?YesTdap: Current?:Yes No-but given today No - advised and declined today N/A Yes, 6 24Shingles: Current?:Yes No-but given today No - advised and declined today N/A 1 dose, 3Gardasil:Current?:N /APneumovax:Current?:N/AP revnar 13: Current?:N/AOther indicated: :Current ?:Covid: yes SCREENING STATUS:Her most recent screening test are reviewed as documented above. Currently overdue for:pelvic and breast exam, mammography---- .Recent abnormal screening tests:none.------ . Based on her age and risk factors, she is DUE FOR THE FOLLOWING SCREENS :Pelvic and Breast exam: todayCervical cancer screening: not needed today but will be due: today no longer indicated due to absence of cervix no longer indicated due to > 65 and has had adequate and negative screening documented not needed today but will be due:__2025___, Negative Pap and HPV 06-30-2023 . Test(s) indicated when next due: Pap with HPV Co-TestCervical Cultures: N/AMammogram : next available- needs to schedule had today baseline due age 42 has scheduled for:___ yearly, due in:____; short term follow due in:--- 07/29/23Colonoscop y:baseline due at 52 Next due in ___ is overdue , counselled and declines to schedule, FIT test is offered as a less effective alternative screen and she declines/accepts is overdue and agree to schedule 03/27/23 nl, repeat 10 yearsDEXA: N/A, underage baseline due in ___ followup due in: __ has scheduled for____ needs to schedule soon 07/2023Lipids: follow with PCP as advised[place] Ovarian Cancer screening :advised of program, information given and can pursue if interested Patient should return in 1 year for an annual wellness exam and sooner as needed for other problems. Zachariah returns for annual exam. She has had no acute gynecologic problems this year. Other than candidiasis see below. As previously discussed she has worked on weaning down her HRT use. She is currently using 0.5 estradiol and 5 mg Provera twice weekly. With this combination she is seeing no bleeding, not having any vasomotor symptoms or any significant dyspareunia or vaginal dryness. She continues to be sexually active. She is having no urinary symptoms. History of postmenopausal bleeding prompting sonohysterogram that was -2019. For this reason when she has been on HRT she has been using the Provera 5 mg dosing.She has had no return of vaginal bleeding. She states she would like to see about going off HRT completely. Reviewed this will be fine and I anticipate her doing well. I will leave prescriptions available in the event she does have any return of vasomotor symptoms. Was seen s April 2024 by Staci with groin candidiasis. She was given clotrimazole and Diflucan. She did not have any labial/introital or vaginal irritation symptoms, had not had any vaginal discharge. She states she used both of these and saw some response but never cleared up completely and starting to bother her a little more particular on her right or it starting to move a little bit even into the mons. She continues to not have any actual vaginal symptoms. She is not a diabetic. She denies any use of any additional [id number] products. She has tried the regiment with Crisco that helps a little bit, per tSaci's recommendation She has chronic intermittent urgency/frequency and near urge incontinence sensation. She has had no dysuria or actual leakage. No hematuria or odor. Will check baseline culture. She does not feel symptoms are bad enough to require any type of medication at this point but continue to monitor Dana Maxwell MD [address], [place], [address], [place] [facility] 08/31/2024 10:40:15 OBGyn Episode No OBEpisode recorded.
--- OUTSIDE RECORDS SUMMARY | 2025-02-15 12:26 | XMS_ITS | Continuity of Care Document ---
Author Organization [facility], ORTHOPEDICS [address] [place] [address] Care Team Providers Care Director Of Clinical Trials Name Role Phone AURELIANO DAVIDSON Primary Care [...] Flag Note LastModifiedBy Organization Detail LastModifiedTime 01/21/2001/20/2025 XR, wrist , 3 or more view [facility] [address] [place] [address] Namita gonzalez Name: ALBERTINA gonzalez : [birth year] 64 Namita gonzalez Orderi ng Provid er: [facility] EXAM DATE: 2024 EXAM: XR RT WRIST [...] Ethan knox MD on 025 11:01 AM [facility] [address] [place], [address], 01/20/2025 12:13:53 Result Notes None recorded. Problems No Known Problems Procedures Surgical History Date Name Laterality Status Provider Name and Address Organization Details Recorded Time Injection Tendon Sheath/Ligament completed JIM LUI MD [address] [place], [address], [facility] 01/21/2025 12:52:58 Puncture Aspiration Abscess, Hematoma, Bulla, Cyst completed JIM LUI MD [facility] [place], [address] 01/21/2025 12:53:40 Imaging Results None recorded. Procedure Notes None recorded. Medical Equipment None Reported. Allergies Allergen ID Allergen Name Allergen Category Reaction Reaction Severity Criticality Documentation Date Start Date Code Code System Note Provider Name and Address Organization Details Recorded Time 726722 Product containin g penicilli n (product) medicatio n Not available Not available Not available 01/20/2025 27403 [id number] SNOMED [facility] Medications Name Sig Start Date Stop [...] Updated DateTime 01/20/2025 175.26 cm 29.5 kg/m2 53793.47 g Jessica Amezcua [facility] 01/20/2025 09:51:15 Social History None recorded. Functional Status None recorded. Mental Status None recorded. Family History Nothing Reported. Medical History No medical history recorded. Gynecological HistoryNo gynecological history recorded. 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 She presents to the clinic for [...] rheumatoid arthritis. [facility] Physician: Aureliano Davidson MD Hand dominance: RightLocation: Right Hand Pain level: 4 /10 Duration:3-4 weeks Recent Surgery: NoProcedure:Date of surgery:Surgeon(If Known): In office procedure? No Previous upper extremity surgery? NoProcedure:Approxi mate date of surgery:Surgeon (if known):Have you or an immediate family member ever seen our hand surgeons before? No Currently employed?: Full timeEmployer: selfOccupation: business directional drill operator Are they currently working? Yes Is this injury associated with a Workers Compensation claim? No Patient arrived in: cast splint surgica l dressing OTC brace n/a [employer] Strength: right: left: JIM LUI MD [address] [place], [address], [facility] 01/21/2025 12:56:25 OBGyn Episode No OBEpisode recorded.
--- OUTSIDE RECORDS SUMMARY | 2025-02-15 12:26 | XMS_ITS | Clinical Summary ---
Author Organization Healthcare Address [address] [place] [address] Care Team Providers Care Otolaryngology Surgeon Name Role Phone Aureliano Johnson MD Primary Care Provider [phone] Family History Medical History Relation Name Comments Other cancer Other Relation Name Status Comments Other Social History Tobacco Use Types Packs/Day Years Used Date Smoking Tobacco: Never Alcohol Use Standard Drinks/Week Comments No 0 (1 standard drink = 0.6 oz pur e alcohol) Comments Unknown Sex and Gender Information Value Date Recorded Sex Assigned at Not on file Legal Sex Female 6:47 PM EDT Gender Identity Not on file Sexual Orientation Not on file Last Filed Vital Signs Vital Sign Reading Time Taken Comments Blood Pressure - - Pulse - - Temperature - - Respiratory Rate - - Oxygen Saturation - - Inhaled Oxygen Concentration - - Weight 84.4 kg (186 lb) 12/17/2016 9:49 AM EDT Height 172.7 cm (5' 8 ) 12/17/2016 9:49 AM EDT Body Mass Index 28.28 12/17/2016 9:49 AM EDT Plan of Treatment Not on file Care Teams Otolaryngology Surgeon Relationship Specialty Start Date End Date Aureliano Johnson MD [address] [place] [address] PCP - General 01/19/21
--- NOTE | 2025-02-15 12:30 | XR_ITS ---
FINAL REPORT CLINICAL HISTORY: Left hip pain FINDINGS: SINGLE VIEW PELVIS: A single view of the pelvis was obtained. There is no acute fracture or dislocation. Vizualized joint spaces are normally aligned. Soft tissues are unremarkable. IMPRESSION: No acute bony abnormality. Reviewed, Interpreted and Dictated by Familia Madden MD Transcribed by Renee Mcintyre Authenticated and [facility]
--- NOTE | 2025-02-15 12:30 | XR_ITS ---
FINAL REPORT CLINICAL HISTORY: Left hip pain FINDINGS: LEFT FEMUR 2 views were obtained. There is no acute fracture or dislocation. Visualized joint spaces are normally aligned. Soft tissues are unremarkable. IMPRESSION: No acute bony abnormality. Reviewed, Interpreted and Dictated by Familia Madden MD Transcribed by Renee Mcintyre Authenticated and [facility]
--- NOTE | 2025-02-15 12:31 | HMH.EDGENADL ---
Discharge Plan Disposition Patient Disposition: Home, Self-Care Condition: Good Prescriptions Prescriptions: No Action multivitamin tablet 1 tab PO QAM loratadine [Claritin] 10 mg tablet 10 mg PO DAILY vitamin B complex [B Complex-Vitamin B12] tablet 1 tab PO DAILY bupropion HCl 300 mg tablet extended release 24 hr PO escitalopram oxalate 10 mg tablet 10 mg PO DAILY gabapentin 100 mg capsule 100 mg PO HS levothyroxine 25 mcg tablet 25 mcg PO DAILY estradiol 0.5 mg tablet 0.5 mg PO DAILY Patient Comments: TAKE 1 TABLET BY MOUTH ONCE DAILY Rx Instructions: 5 days a week Referrals Follow up/Referrals: Dejon Marie DO [Staff Physician, Orthopedics] - See instructions Aureliano Johnson MD [Primary Care Provider, Internal Medicine] - See instructions Activity Restrictions/Add. Instructions Additional Instructions/Restrictions: Please follow-up with the orthopedic/bone doctor in the upcoming days/weeks, could pursue outpatient MRI if symptoms persist for greater than 1 week, I recommend rest, ice, Tylenol and other anti-inflammatory medication as needed for pain, utilize crutches or other assistive devices, for fall prevention. Please return to the emergency department any worsening signs or symptoms, please follow-up with your family doctor in the upcoming days/weeks. Clinical Impressions Clinical Impression: Hip pain, left, Muscle strain of left hip Instructions Patient Instructions: How to Prevent Falls, DI for Hip Pain Print Language Print Language: Swedish Discharge ED Provider: Kevin Vazquez Adult HPI <TATY Amaya - Last Filed: 02/15/25 14:51> General Chief complaint: Fall Stated complaint: left hip popped pain in left hip Time Seen by Provider: 02/15/25 12:23 Mode of Arrival: Ambulatory Source of Information: Patient Limitations: No Limitations History of Present Illness HPI narrative: 65-year-old female presents to the emergency department with left hip pain, patient states around 9 AM this morning, she was coming into her house from being outside, when she went to kick my shoes off , causing her to trip and fall, she was able to catch herself on a barstool , but she felt immediate left hip pain and describes it as a pop , denies actually falling to the ground, denies striking the head, denies any lower back pain outside of her baseline, she has had previous what sounds like discectomy and ongoing lumbar back pain with acute sciatica on the left leg, however this pain is quite different, she denies any fever chills dizziness, presyncopal or syncopal event, no chest pain, no urinary bladder or bowel dysfunction, no saddle anesthesia, no upper or lower extremity weakness, patient however has some pain limited range of motion somewhat difficulty ambulating due to pain of the left hip, however has ambulated on the affected extremity after the near fall. Patient has other acute symptomatology, patient denies alcohol tobacco or drug use, other past medical history is consistent with hypothyroidism, JESSICA, MDD, patient denies any history of osteoporosis/osteopenia, patient states that she had a what sounds like a DEXA scan performed at her PCP/[facility]'s office several years ago which yielded good results. Initial triage vitals are unremarkable. Patient of note is taken 600 mg of ibuprofen around 9:30 AM today after the fall, which did provide some temporary relief to her symptomatology. Onset (ago): hour(s) Related Data Home Medications ?Medication ?Instructions ?Recorded ?Confirmed loratadine 10 mg tablet (Claritin) 10 mg PO DAILY allergies 12/08/17 03/15/24 multivitamin 1 tab PO QAM Supplement 12/08/17 03/15/24 vitamin B complex (B 1 tab PO DAILY Supplement 12/08/17 03/15/24 Complex-Vitamin B12 tablet) estradiol 0.5 mg tablet 0.5 mg PO DAILY hormone 03/12/23 03/15/24 levothyroxine 25 mcg tablet 25 mcg PO DAILY thyroid 03/12/23 03/15/24 bupropion HCl 300 mg 24 hr tablet, mg PO 03/03/24 03/15/24 extended release escitalopram oxalate 10 mg tablet 10 mg PO DAILY 03/03/24 03/15/24 gabapentin 100 mg capsule 100 mg PO HS 03/03/24 03/15/24 Allergies Allergy/AdvReac Type Severity Reaction Status Date / Time Penicillins (PENICILLINS) Allergy Unknown Verified 03/15/24 16:41 [facility] <TATY Amaya - Last Filed: 02/15/25 14:51> [facility] Disclaimer: The information contained in this section may have been updated after the patient was seen, as this information can be updated by other users. 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 caffeine: Yes special nancie needs: No do you feel safe at home: Yes victim of physical abuse: No victim of emotional abuse: No victim of sexual abuse: No would you like helpful sources: No Have you lived/traveled outside [place] in past 30 days?: No Contact w/someone who lives/traveled outside [place] past 30 days?: No Exposure to someone with infectious disease in past 14 days?: No Do you have a fever (greater than 100.4 F or 38 C)?: No Have you tested positive for COVID-19?: No Exposed to someone with COVID-19 in past 14 days?: No Do you have a sore throat?: No Do you have a cough?: No Do you have any weakness?: No Do you have any diarrhea?: No Are you experiencing any unusual bleeding?: No Do you have any muscle aches/pain?: No Do you have any abdominal pain?: No Are you experiencing loss of taste or smell?: No Other Medical History Have you received the Flu Vaccine for this season: Yes Have you received the Pneumonia Vaccine: No <TATY Amaya - Last Filed: 02/15/25 14:51> ROS Obtained: Yes All systems reviewed & no additional complaints except as documented Physical Exam <TATY Amaya - Last Filed: 02/15/25 14:51> General General appearance: alert and in no apparent distress Head Head exam: atraumatic and normocephalic Eye Eye exam: Present PERRL and EOMI ENT ENT exam: Present mucous membranes moist Neck Neck exam: Present normal inspection Chest Chest inspection: Present normal inspection and symmetric chest wall rise Respiratory Respiratory exam: Present normal lung sounds bilaterally; Absent respiratory distress Cardiovascular Cardiovascular exam: Present regular rate and normal rhythm Abdominal Exam Abdominal exam: Present soft; Absent tenderness Extremities Exam Extremities exam: Present normal inspection, tenderness and other (There is no obvious open fracture deformity, no internal or external rotation, no limb shortening, patient moves extremity to command, however does have some pain limited range of motion with multiple movements such as abduction abduction, internal and external rotation, no difficulty with flexion o); Absent full ROM Neurological Exam Neurological exam: Present alert and oriented X3 Psychiatric Psychiatric exam: Present normal affect Skin Skin exam: Present warm and dry Medical Decision Making <TATY Amaya - Last Filed: 02/15/25 14:51> Medical Records Medical records reviewed: Yes I reviewed the patient's medical records. Screening: Per USPSTF and CDC recommendations, given the prevalence of disease in our region, it is our hospital?s policy to screen for HIV and viral Hepatitis for all patients aged 18 and over and those with ongoing risk factors. Rajendra Inquiry Pt receiving controlled substance: No Rajendra was queried for this patient: No Vital Signs: 02/15/25 12:25 02/15/25 13:00 02/15/25 13:30 Temperature 98.4 F Temperature Source Oral Pulse Rate 75 74 Pulse Rate [Right Radial] 81 Respiratory Rate 15 18 18 Blood Pressure 138/77 128/78 Blood Pressure [Right Arm] 161/87 H Blood Pressure Mean 97 87 Blood Pressure Mean [Right Arm] 111 Blood Pressure Source [Right Arm] Automatic Cuff Blood Pressure Position [Right Arm] Supine 02 Sat by Pulse Oximetry 96 96 96 Oxygen Delivery Method Room Air 02/15/25 14:00 02/15/25 14:30 02/15/25 14:51 Temperature 98.5 F Temperature Source Pulse Rate 68 71 73 Pulse Rate [Right Radial] Respiratory Rate 18 18 20 Blood Pressure 134/84 117/74 117/74 Blood Pressure [Right Arm] Blood Pressure Mean 96 97 Blood Pressure Mean [Right Arm] Blood Pressure Source [Right Arm] Blood Pressure Position [Right Arm] 02 Sat by Pulse Oximetry 97 95 Oxygen Delivery Method Orders (Tests/Meds): ORDERS Category Date Time Status Pelvis XR 1-2 views [XR pelvis 1-2V] Stat Exams 02/15/25 12:30 Completed XR femur LT 2V Stat Exams 02/15/25 12:30 Completed Medical Decision Narrative: 65-year-old female presents the emergency department with left hip pain, differential diagnose include but not limited to Femur fracture, hip fracture, anterior hip dislocation, acetabular fracture, hip bursitis, piriformis syndrome, hip sprain/strain, osteoarthritis, ligamentous injury/labrum tear among others. I discussed patient case with attending physician Obtain x-ray of the pelvis, x-ray of the femur on the left. Did offer patient additional analgesia, she declined at this time. I reviewed the patient's left femur x-ray along with the corresponding radiologic report no acute bony abnormality. I reviewed the patient's x-ray along the corresponding radiologic report, no acute bony abnormality. I discussed the results with the patient and at the bedside, patient has been able to ambulate on the affected extremity, does have some pain limited range of motion, recommend rest ice, compression, elevation, recommend follow-up with orthopedic doctor, possibly could pursue outpatient MRI for more evaluation of the ligaments/tendons, and labrum of the hip, patient voiced understanding and agreement with current treatment plan/discharge plan, offered crutches/assistive devices to the patient and family the bedside, denied at this time states that they have crutches at home. Recommend ibuprofen Tylenol and other anti-inflammatory medications as needed for pain. Patient will return to the emerged part with any worsening signs or symptoms. Considered obtaining CT bony pelvis for further evaluation for occult fracture, however patient ambulates on the affected extremity, with minimal pain limitation, has good range of motion, no obvious deformity or fracture noted on plain film x-rays, as well as negative DEXA scan several years ago and no history of osteopenia or osteoporosis, with no true fall. <Kevin Vazquez MD - Last Filed: 02/16/25 21:26> Vital Signs: 02/15/25 12:25 02/15/25 13:00 02/15/25 13:30 Temperature 98.4 F Temperature Source Oral Pulse Rate 75 74 Pulse Rate [Right Radial] 81 Respiratory Rate 15 18 18 Blood Pressure 138/77 128/78 Blood Pressure [Right Arm] 161/87 H Blood Pressure Mean 97 87 Blood Pressure Mean [Right Arm] 111 Blood Pressure Source [Right Arm] Automatic Cuff Blood Pressure Position [Right Arm] Supine 02 Sat by Pulse Oximetry 96 96 96 Oxygen Delivery Method Room Air 02/15/25 14:00 02/15/25 14:30 02/15/25 14:51 Temperature 98.5 F Temperature Source Pulse Rate 68 71 73 Pulse Rate [Right Radial] Respiratory Rate 18 18 20 Blood Pressure 134/84 117/74 117/74 Blood Pressure [Right Arm] Blood Pressure Mean 96 97 Blood Pressure Mean [Right Arm] Blood Pressure Source [Right Arm] Blood Pressure Position [Right Arm] 02 Sat by Pulse Oximetry 97 95 Oxygen Delivery Method Orders (Tests/Meds): ORDERS Category Date Time Status Pelvis XR 1-2 views [XR pelvis 1-2V] Stat Exams 02/15/25 12:30 Completed XR femur LT 2V Stat Exams 02/15/25 12:30 Completed Medical Decision Narrative: 65-year-old female presents the emergency department with left hip pain, differential diagnose include but not limited to Femur fracture, hip fracture, anterior hip dislocation, acetabular fracture, hip bursitis, piriformis syndrome, hip sprain/strain, osteoarthritis, ligamentous injury/labrum tear among others. I discussed patient case with attending physician Obtain x-ray of the pelvis, x-ray of the femur on the left. Did offer patient additional analgesia, she declined at this time. I reviewed the patient's left femur x-ray along with the corresponding radiologic report no acute bony abnormality. I reviewed the patient's x-ray along the corresponding radiologic report, no acute bony abnormality. I discussed the results with the patient and at the bedside, patient has been able to ambulate on the affected extremity, does have some pain limited range of motion, recommend rest ice, compression, elevation, recommend follow-up with orthopedic doctor, possibly could pursue outpatient MRI for more evaluation of the ligaments/tendons, and labrum of the hip, patient voiced understanding and agreement with current treatment plan/discharge plan, offered crutches/assistive devices to the patient and family the bedside, denied at this time states that they have crutches at home. Recommend ibuprofen Tylenol and other anti-inflammatory medications as needed for pain. Patient will return to the emerged part with any worsening signs or symptoms. Considered obtaining CT bony pelvis for further evaluation for occult fracture, however patient ambulates on the affected extremity, with minimal pain limitation, has good range of motion, no obvious deformity or fracture noted on plain film x-rays, as well as negative DEXA scan several years ago and no history of osteopenia or osteoporosis, with no true fall. I was consulted by the VANNESSA, and we discussed the complexity of the problems being addressed.I approved the treatment and management plan for this patient?s care in the Emergency Department, thus performing a substantive portion of the medical decision making.Signed, Kevin Vazquez MD [facility] <TATY Amaya - Last Filed: 02/15/25 14:51> Critical Care Time Critical Care Time: No
--- NOTE | 2025-02-15 12:35 | PC.NURSE ---
PT TO XR
[2025-02-15 13:00] VITALS: BP 138/77; PULSE 75; RESP 18; O2SAT 96
--- NOTE | 2025-02-15 13:00 | PC.NURSE ---
PT RETURNED FROM XR
[2025-02-15 13:30] VITALS: BP 128/78; PULSE 74; RESP 18; O2SAT 96
[2025-02-15 14:00] VITALS: BP 134/84; PULSE 68; RESP 18; O2SAT 97
[2025-02-15 14:30] VITALS: BP 117/74; PULSE 71; RESP 18; O2SAT 95
[2025-02-15 14:51] VITALS: BP 117/74; PULSE 73; RESP 20; TEMP 36.9; O2SAT 95
== END 2025-02-15 14:57 | disposition home or self-care (01) ==
PROVIDERS: Emergency Provider Emergency Medicine; PCP Internal Medicine Adolescent Medicine
DX: S76.012A Strain of muscle, fascia and tendon of left hip, initial encounter (principal); M25.552 Pain in left hip; W01.10XA Fall on same level from slipping, tripping and stumbling with subsequent striking against unspecified object, initial encounter
CPT/HCPCS: 72170; 73552; 99284